=== PATIENT | male | born 1955 | race Caucasian/White ===

== ENCOUNTER 2018-03-30 15:44 | Inpatient (IN) ==
[2018-03-30] MEDS ORDERED: 0.9 % Sodium Chloride 1,000 ML IVC ONE ×2 (16:02→17:03)
[2018-03-30] MEDS ORDERED: Ipratropium Neb 0.5 MG NEBULIZER IH ONE (16:02)
--- NOTE | 2018-03-30 16:03 | Emergency Department Note ---
Disposition Clinical Impression: Hospital acquired PNA Sepsis Qualifiers: Sepsis type: sepsis due to unspecified organism Qualified Code(s): A41.9 - Sepsis, unspecified organism Disposition: Admitted As Inpatient Condition: Fair Referrals: Zander Christina DO [Primary Care Provider] - Forms: ED Satisfaction Letter General Adult HPI - General Chief complaint: ED Shortness of Breath/Dyspnea Stated complaint: CHELSEA, fever Nursing Notes Reviewed: Yes Vital Signs Reviewed: Yes - History of Present Illness HPI Narrative: 8-year-old male presents emergency department with concern for productive cough and shortness of breath as well as fever for last couple days. Patient is a lung cancer patient who had his last radiation done 6 days ago. Last chemotherapy was performed 14 days ago. Patient does not have a port. Patient states he feels like this is when he had pneumonia last. Patient reports that he feels exactly the same. He does have some nausea, but no vomiting. No chest pain, no abdominal pain. - Related Data Home Medications Medication Instructions Recorded Confirmed Albuterol Sulfate [Albuterol 2 puff IH Q4H PRN 01/15/18 03/30/18 Inhaler] Multivit-Minerals/Folic Acid 400 mcg PO DAILY 01/15/18 03/30/18 [Adult One Daily Gummies] Omeprazole [PriLOSEC] 20 mg PO DAILY 03/04/18 03/30/18 Previous Rx's Medication Instructions Recorded Ondansetron [Zofran] 8 mg PO Q8HR PRN #60 tablet 02/07/18 Prochlorperazine Maleate 10 mg PO Q6HR PRN #90 tablet 02/07/18 [Compazine] GuaiFENesin/Codeine [ROBITUSSIN 10 ml PO Q6HR PRN 20 Days #800 ml 02/20/18 w/CODEINE] Albuterol Neb [AccuNeb] 0.63 mg IH PRN PRN #30 inhsol 02/25/18 Magic Mouthwash [Magic Mouthwash 10 ml PO QID PRN #400 ml 02/27/18 BLM] Sucralfate [Carafate] 1 gm PO QIDAC #120 tablet 03/04/18 Allergies Allergy/AdvReac Type Severity Reaction Status Date / Time No Known Allergies Allergy Verified 03/19/18 08:30 All systems ED: reviewed and negative except as stated. Review of Systems: As Per HPI Constitutional: Reports: fever Cardiovascular: Denies: chest pain Respiratory: Reports: cough, sputum production Gastrointestinal: Reports: nausea. Denies: abdominal pain, vomiting Genitourinary: Denies: urgency, dysuria Musculoskeletal: Denies: back pain, neck pain Integumentary: Denies: rash Neurological: Denies: headache, weakness Past Medical History - Past Medical History Medical history: Reports: hepatitis, other Surgical history: Reports: herniorrhaphy, orthopedic, other, other Psychiatric history: Reports: anxiety - Social History Smoking Status: Former smoker Smokeless Tobacco Status: No Alcohol use: Reports: heavy Drug use: Reports: marijuana Physical Exam - General General appearance: alert - Head Head exam: normocephalic, normal inspection - Eye Eye exam: Present: PERRL, EOMI. Absent: scleral icterus - ENT ENT exam: normal oropharynx - Neck Neck exam: Present: trachea midline - Chest Chest inspection: Present: symmetric chest wall rise - Respiratory Respiratory exam: Present: normal lung sounds bilaterally. Absent: respiratory distress, accessory muscle use - Cardiovascular Cardiovascular exam: Present: normal rhythm, tachycardia - Abdominal Exam Abdominal exam: Present: soft, Non-Tender. Absent: distention, guarding, rebound, rigidity - Extremities Exam Extremities exam: Present: full ROM, normal capillary refill - Back Exam Back exam: Present: full ROM - Neurological Exam Neurological exam: Present: alert, oriented X3 - Psychiatric Psychiatric exam: Present: normal affect, normal mood - Skin Skin exam: Present: warm, dry, intact, normal color. Absent: rash Course Vital Signs Temperature 102.4 F H 03/30/18 15:46 Pulse Rate 122 03/30/18 15:46 Respiratory Rate 22 03/30/18 15:46 Blood Pressure 111/75 03/30/18 15:46 O2 Sat by Pulse Oximetry 95 03/30/18 15:46 Temperature 102.4 F H 03/30/18 15:50 Pulse Rate 106 03/30/18 16:24 Respiratory Rate 18 03/30/18 16:29 Blood Pressure 110/75 03/30/18 16:24 O2 Sat by Pulse Oximetry 96 03/30/18 16:29 Oxygen Delivery Oxygen Delivery Room Air Medical Decision Making - [facility] Narrative Medical decision making narrative: 62-year-old male presents to the emergency department with concern for fever, productive sputum, cough. He is a cancer patient and believes that he has pneumonia again. Patient was previously prescribed antibiotics for a pneumonia before. He has been receiving chemotherapy and radiation therapy. Patient was given 2 L of fluid here in the emergency department. This is a reveals new pneumonia in the left upper lobe. Patient was started on vancomycin, cefepime, Levaquin. Patient was given Tylenol as he was febrile. Patient was given DuoNeb here in the emergency department. I do casted was not elevated. Heart rate did reduce from 122-106. We also gave patient Toradol as well for fever. Spoke with the hospitalist Dr. George for admission. He he agreed to accept the patient. Patient hemodynamically stable at the time of admission to the hospital. Chest X-Ray 03/30/18 15:54 IMPRESSION: New pneumonia axillary subsegment left upper lobe. Chest radiograph surveillance in 4-6 weeks is recommended to ensure clearing. D/ / Matias Carlos / Matias Carlos Interpreting Provider: Matias Carlos Vital Signs Temperature 102.4 F H 03/30/18 15:46 Pulse Rate 122 03/30/18 15:46 Respiratory Rate 22 03/30/18 15:46 Blood Pressure 111/75 03/30/18 15:46 O2 Sat by Pulse Oximetry 95 03/30/18 15:46 Temperature 102.4 F H 03/30/18 15:50 Pulse Rate 106 03/30/18 18:00 Respiratory Rate 16 03/30/18 18:00 Blood Pressure 101/66 03/30/18 18:00 O2 Sat by Pulse Oximetry 97 03/30/18 18:00 Oxygen Delivery Oxygen Delivery Room Air - Lab Data Result diagrams: 03/30/18 16:00 03/30/18 16:00 Lab Results 03/30/18 03/30/18 03/30/18 Range/Units 16:00 16:00 16:00 WBC 4.1 L (4.3-11.1) K/mcL RBC 3.69 L (4.19-5.50) M/mcL Hgb 10.8 L (12.9-16.9) g/dL Hct 32.3 L (37.5-50.1) % MCV 87.5 (83.0-100.0) fL MCH 29.3 (28.0-33.3) pg MCHC 33.4 (31.6-35.5) g/dL RDW 16.5 H (11.5-14.5) % Plt Count 146 (140-400) K/mcL MPV 9.2 L (9.4-12.4) fL Immature Gran % 1.0 (0-4) % Seg Neutrophils % 76.2 % Lymphocytes % 7.3 % Monocytes % 15.1 % Eosinophils % 0.2 % Basophils % 0.2 % Neutrophils # 3.1 (1.6-8.9) K/mcL Lymphocytes # 0.3 L (0.6-4.6) K/mcL Monocytes # 0.6 (0.0-1.3) K/mcL Eosinophils # 0.0 (0.0-0.6) K/mcL Basophils # 0.0 (0.0-0.2) K/mcL Sodium 134 L (136-145) mEq/L Potassium 4.2 (3.5-5.1) mEq/L Chloride 100 (98-107) mEq/L Carbon Dioxide 24 (23-29) mEq/L BUN 18 (8-23) mg/dL Creatinine 0.87 (0.70-1.30) mg/dL Est GFR ( Amer) > 60 (> 60) Est GFR (Non-Af Amer) > 60 (> 60) BUN/Creatinine Ratio 21 (6-26) Glucose 121 H (70-105) mg/dL Calculated Osmolality 281 (280-300) Lactic Acid 1.2 (0.5-2.2) mmol/L Calcium 9.1 (8.6-10.3) mg/dL Troponin I < 0.03 (< 0.04) ng/mL B-Natriuretic Peptide (Less than 100) pg/mL Urine Color (Yellow) Urine Clarity (Clear) Urine pH (5.0-8.0) pH Units Ur Specific [place] (1.010-1.025) Urine Protein (Neg-Trace) mg/dL Urine Glucose (UA) (Normal) mg/dL Urine Ketones (Negative) mg/dL Urine Blood (Negative) Urine Nitrite (Negative) Urine Bilirubin (Negative) Urine Urobilinogen (Normal) mg/dL Ur Leukocyte Esterase (Negative) Urine Microscopic RBC (0-3) per hpf Urine Microscopic WBC (0-3) per hpf Ur Squamous Epith Cells (None-Few) per lpf Urine Bacteria (None-Few) per hpf Hyaline Casts (None-Few) per lpf Ur Culture Indicated? (NO) 03/30/18 03/30/18 Range/Units 16:00 16:24 WBC (4.3-11.1) K/mcL RBC (4.19-5.50) M/mcL Hgb (12.9-16.9) g/dL Hct (37.5-50.1) % MCV (83.0-100.0) fL MCH (28.0-33.3) pg MCHC (31.6-35.5) g/dL RDW (11.5-14.5) % Plt Count (140-400) K/mcL MPV (9.4-12.4) fL Immature Gran % (0-4) % Seg Neutrophils % % Lymphocytes % % Monocytes % % Eosinophils % % Basophils % % Neutrophils # (1.6-8.9) K/mcL Lymphocytes # (0.6-4.6) K/mcL Monocytes # (0.0-1.3) K/mcL Eosinophils # (0.0-0.6) K/mcL Basophils # (0.0-0.2) K/mcL Sodium (136-145) mEq/L Potassium (3.5-5.1) mEq/L Chloride (98-107) mEq/L Carbon Dioxide (23-29) mEq/L BUN (8-23) mg/dL Creatinine (0.70-1.30) mg/dL Est GFR ( Amer) (> 60) Est GFR (Non-Af Amer) (> 60) BUN/Creatinine Ratio (6-26) Glucose (70-105) mg/dL Calculated Osmolality (280-300) Lactic Acid (0.5-2.2) mmol/L Calcium (8.6-10.3) mg/dL Troponin I (< 0.04) ng/mL B-Natriuretic Peptide 54 (Less than 100) pg/mL Urine Color Dark Yellow (Yellow) Urine Clarity Cloudy A (Clear) Urine pH 7.5 (5.0-8.0) pH Units Ur Specific [place] 1.026 H (1.010-1.025) Urine Protein 30 H (Neg-Trace) mg/dL Urine Glucose (UA) Normal (Normal) mg/dL Urine Ketones 15 H (Negative) mg/dL Urine Blood Negative (Negative) Urine Nitrite Negative (Negative) Urine Bilirubin Negative (Negative) Urine Urobilinogen Normal (Normal) mg/dL Ur Leukocyte Esterase Negative (Negative) Urine Microscopic RBC 5-15 H (0-3) per hpf Urine Microscopic WBC 0-3 (0-3) per hpf Ur Squamous Epith Cells Moderate H (None-Few) per lpf Urine Bacteria None Seen (None-Few) per hpf Hyaline Casts None Seen (None-Few) per lpf Ur Culture Indicated? NO (NO) - EKG Data EKG #1 EKG attestation: Yes I reviewed and interpreted this EKG. EKG results narrative: 15:51 Ventricular rate 120 bpm, CO interval 143 ms, QS duration 138 ms, QT 324 ms, QTC 396 ms, left axis deviation. Sinus tachycardia with a ventricular rate of [address] changes noted on this electrocardiogram. This study was compared to one performed on .
[2018-03-30] MEDS ORDERED: Levalbuterol Neb 1.25 MG/3 ML IH ONE (16:15)
[2018-03-30 16:19] LABS: Basophils % 0.2 %; Eosinophils % 0.2 %; Hematocrit 32.3 % (37.5-50.1); Hemoglobin 10.8 g/dL (12.9-16.9); Lymphocytes # 0.3 K/mcL (0.6-4.6); Lymphocytes % 7.3 %; Mean Corpuscular HGB Conc 33.4 g/dL (31.6-35.5); Mean Corpuscular Hemoglobin 29.3 pg (28.0-33.3); Mean Corpuscular Volume 87.5 fL (83.0-100.0); Mean Platelet Volume 9.2 fL (9.4-12.4); Monocytes # 0.6 K/mcL (0.0-1.3); Monocytes % 15.1 %; Neutrophils # 3.1 K/mcL (1.6-8.9); Platelet Count 146 K/mcL (140-400); Red Blood Count 3.69 M/mcL (4.19-5.50); Red Cell Distribution Width 16.5 % (11.5-14.5); Segmented Neutrophils % 76.2 %
--- NOTE | 2018-03-30 16:19 | Emergency Department Note ---
Disposition Clinical Impression: Hospital acquired PNA Sepsis Qualifiers: Sepsis type: sepsis due to unspecified organism Qualified Code(s): A41.9 - Sepsis, unspecified organism Disposition: Admitted As Inpatient Condition: Fair Referrals: Zander Christina DO [Primary Care Provider] - Forms: ED Satisfaction Letter General Adult HPI - General Chief complaint: ED Shortness of Breath/Dyspnea Stated complaint: CHELSEA, fever Time Seen by Provider: 03/30/18 15:57 Source: patient - History of Present Illness Pain Scale: 0 - Related Data Home Medications Medication Instructions Recorded Confirmed Albuterol Sulfate [Albuterol 2 puff IH Q4H PRN 01/15/18 03/30/18 Inhaler] Multivit-Minerals/Folic Acid 400 mcg PO DAILY 01/15/18 03/30/18 [Adult One Daily Gummies] Omeprazole [PriLOSEC] 20 mg PO DAILY 03/04/18 03/30/18 Previous Rx's Medication Instructions Recorded Ondansetron [Zofran] 8 mg PO Q8HR PRN #60 tablet 02/07/18 Prochlorperazine Maleate 10 mg PO Q6HR PRN #90 tablet 02/07/18 [Compazine] GuaiFENesin/Codeine [ROBITUSSIN 10 ml PO Q6HR PRN 20 Days #800 ml 02/20/18 w/CODEINE] Albuterol Neb [AccuNeb] 0.63 mg IH PRN PRN #30 inhsol 02/25/18 Magic Mouthwash [Magic Mouthwash 10 ml PO QID PRN #400 ml 02/27/18 BLM] Sucralfate [Carafate] 1 gm PO QIDAC #120 tablet 03/04/18 Allergies Allergy/AdvReac Type Severity Reaction Status Date / Time No Known Allergies Allergy Verified 03/19/18 08:30 Constitutional: Reports: fever Cardiovascular: Denies: chest pain Respiratory: Reports: cough, sputum production Gastrointestinal: Reports: nausea. Denies: abdominal pain, vomiting Genitourinary: Denies: urgency, dysuria Musculoskeletal: Denies: back pain, neck pain Integumentary: Denies: rash Neurological: Denies: headache, weakness Past Medical History - Past Medical History Medical history: Reports: hepatitis, other Surgical history: Reports: herniorrhaphy, orthopedic, other, other Psychiatric history: Reports: anxiety - Social History Smoking Status: Former smoker Smokeless Tobacco Status: No Alcohol use: Reports: heavy Drug use: Reports: marijuana Physical Exam - General General appearance: alert Course Vital Signs Temperature 102.4 F H 03/30/18 15:46 Pulse Rate 122 03/30/18 15:46 Respiratory Rate 22 03/30/18 15:46 Blood Pressure 111/75 03/30/18 15:46 O2 Sat by Pulse Oximetry 95 03/30/18 15:46 Temperature 102.4 F H 03/30/18 15:50 Pulse Rate 106 03/30/18 16:24 Respiratory Rate 18 03/30/18 16:29 Blood Pressure 110/75 03/30/18 16:24 O2 Sat by Pulse Oximetry 96 03/30/18 16:29 Oxygen Delivery Oxygen Delivery Room Air Medical Decision Making - Lab Data Result diagrams: 03/30/18 16:00 03/30/18 16:00 Lab Results 03/30/18 03/30/18 03/30/18 Range/Units 16:00 16:00 16:00 WBC 4.1 L (4.3-11.1) K/mcL RBC 3.69 L (4.19-5.50) M/mcL Hgb 10.8 L (12.9-16.9) g/dL Hct 32.3 L (37.5-50.1) % MCV 87.5 (83.0-100.0) fL MCH 29.3 (28.0-33.3) pg MCHC 33.4 (31.6-35.5) g/dL RDW 16.5 H (11.5-14.5) % Plt Count 146 (140-400) K/mcL MPV 9.2 L (9.4-12.4) fL Immature Gran % 1.0 (0-4) % Seg Neutrophils % 76.2 % Lymphocytes % 7.3 % Monocytes % 15.1 % Eosinophils % 0.2 % Basophils % 0.2 % Neutrophils # 3.1 (1.6-8.9) K/mcL Lymphocytes # 0.3 L (0.6-4.6) K/mcL Monocytes # 0.6 (0.0-1.3) K/mcL Eosinophils # 0.0 (0.0-0.6) K/mcL Basophils # 0.0 (0.0-0.2) K/mcL Sodium 134 L (136-145) mEq/L Potassium 4.2 (3.5-5.1) mEq/L Chloride 100 (98-107) mEq/L Carbon Dioxide 24 (23-29) mEq/L BUN 18 (8-23) mg/dL Creatinine 0.87 (0.70-1.30) mg/dL Est GFR ( Amer) > 60 (> 60) Est GFR (Non-Af Amer) > 60 (> 60) BUN/Creatinine Ratio 21 (6-26) Glucose 121 H (70-105) mg/dL Calculated Osmolality 281 (280-300) Lactic Acid 1.2 (0.5-2.2) mmol/L Calcium 9.1 (8.6-10.3) mg/dL Troponin I < 0.03 (< 0.04) ng/mL B-Natriuretic Peptide (Less than 100) pg/mL Urine Color (Yellow) Urine Clarity (Clear) Urine pH (5.0-8.0) pH Units Ur Specific [place] (1.010-1.025) Urine Protein (Neg-Trace) mg/dL Urine Glucose (UA) (Normal) mg/dL Urine Ketones (Negative) mg/dL Urine Blood (Negative) Urine Nitrite (Negative) Urine Bilirubin (Negative) Urine Urobilinogen (Normal) mg/dL Ur Leukocyte Esterase (Negative) Urine Microscopic RBC (0-3) per hpf Urine Microscopic WBC (0-3) per hpf Ur Squamous Epith Cells (None-Few) per lpf Urine Bacteria (None-Few) per hpf Hyaline Casts (None-Few) per lpf Ur Culture Indicated? (NO) 03/30/18 03/30/18 Range/Units 16:00 16:24 WBC (4.3-11.1) K/mcL RBC (4.19-5.50) M/mcL Hgb (12.9-16.9) g/dL Hct (37.5-50.1) % MCV (83.0-100.0) fL MCH (28.0-33.3) pg MCHC (31.6-35.5) g/dL RDW (11.5-14.5) % Plt Count (140-400) K/mcL MPV (9.4-12.4) fL Immature Gran % (0-4) % Seg Neutrophils % % Lymphocytes % % Monocytes % % Eosinophils % % Basophils % % Neutrophils # (1.6-8.9) K/mcL Lymphocytes # (0.6-4.6) K/mcL Monocytes # (0.0-1.3) K/mcL Eosinophils # (0.0-0.6) K/mcL Basophils # (0.0-0.2) K/mcL Sodium (136-145) mEq/L Potassium (3.5-5.1) mEq/L Chloride (98-107) mEq/L Carbon Dioxide (23-29) mEq/L BUN (8-23) mg/dL Creatinine (0.70-1.30) mg/dL Est GFR ( Amer) (> 60) Est GFR (Non-Af Amer) (> 60) BUN/Creatinine Ratio (6-26) Glucose (70-105) mg/dL Calculated Osmolality (280-300) Lactic Acid (0.5-2.2) mmol/L Calcium (8.6-10.3) mg/dL Troponin I (< 0.04) ng/mL B-Natriuretic Peptide 54 (Less than 100) pg/mL Urine Color Dark Yellow (Yellow) Urine Clarity Cloudy A (Clear) Urine pH 7.5 (5.0-8.0) pH Units Ur Specific [place] 1.026 H (1.010-1.025) Urine Protein 30 H (Neg-Trace) mg/dL Urine Glucose (UA) Normal (Normal) mg/dL Urine Ketones 15 H (Negative) mg/dL Urine Blood Negative (Negative) Urine Nitrite Negative (Negative) Urine Bilirubin Negative (Negative) Urine Urobilinogen Normal (Normal) mg/dL Ur Leukocyte Esterase Negative (Negative) Urine Microscopic RBC 5-15 H (0-3) per hpf Urine Microscopic WBC 0-3 (0-3) per hpf Ur Squamous Epith Cells Moderate H (None-Few) per lpf Urine Bacteria None Seen (None-Few) per hpf Hyaline Casts None Seen (None-Few) per lpf Ur Culture Indicated? NO (NO) Critical Care Time Critical Care Time: Yes Total Critical Care Time: 40 Attestation: Critical care performed: Time is exclusive of separately billable procedures. Time includes: direct patient care, patient reassessment, coordination of patient care, interpretation of data (laboratory data, radiology data, and respiratory data), review of patient's medical records, medical consultation and documentation of patient care. Procedures included in critical care time: Procedures excluded from critical care time: Attestation Statement - Attestation Attestation: I examined this patient and my medical decision-making was reviewed with the Resident Physician. I agree with the documented findings, disposition and treatment plan as described except to the extent set forth below. Patient presents to the ED with a chief complaint of fever. Started last night. He has a productive cough associated with it. Patient just finished his last chemotherapy 12 days ago. Patient currently being treated for lung cancer. On examination he is in no acute distress. Exclusive coarse breath sounds on the right. Plan. Septic workup. Patient is febrile and tachycardic. Patient with upper lobe pneumonia. Meets sepsis criteria without shock. Patient placed on broad-spectrum antibiotics. Hemolytically stable. Heart rate is improved to the low 100s at this time after IV fluids. Chest X-Ray 03/30/18 15:54 IMPRESSION: New pneumonia axillary subsegment left upper lobe. Chest radiograph surveillance in 4-6 weeks is recommended to ensure clearing. D/ / Matias Carlos / Matias Carlos Interpreting Provider: Matias Carlos
[2018-03-30] MEDS ORDERED: Ipratropium/Albuterol Neb 3 ML IH ONE (16:23)
[2018-03-30 16:38] LABS: Bilirubin,Urine Negative (Negative); Blood,Urine Negative (Negative); Clarity,Urine Cloudy (Clear); Color,Urine Dark Yellow (Yellow); Glucose,Urine (UA) Normal (Normal); Ketones,Urine 15 mg/dL (Negative); Leukocyte Esterase,Urine Negative (Negative); Nitrite,Urine Negative (Negative); PH,Urine 7.5 pH Units (5.0-8.0); Protein,Urine 30 mg/dL (Neg-Trace); Specific Gravity,Urine 1.026 (1.010-1.025); Urobilinogen,Urine Normal (Normal)
[2018-03-30 16:41] LABS: Bacteria,Urine None Seen per hpf (None-Few); Hyaline Casts,Urine None Seen per lpf (None-Few); Squamous Epithelial Cell,Urine Moderate per lpf (None-Few); WBC,Urine 0-3 per hpf (0-3)
[2018-03-30 16:44] LABS: BUN/Creatinine Ratio 21 (6-26); Blood Urea Nitrogen 18 mg/dL (8-23); Calcium 9.1 mg/dL (8.6-10.3); Carbon Dioxide 24 mEq/L (23-29); Chloride 100 mEq/L (98-107); Glucose 121 mg/dL (70-105); Osmolality,Calculated 281 (280-300); Potassium 4.2 mEq/L (3.5-5.1); Sodium 134 mEq/L (136-145); eGFR For African Americans > 60 (> 60); eGFR For Non-African Americans > 60 (> 60)
[2018-03-30 16:45] LABS: Troponin I < 0.03 ng/mL (< 0.04)
[2018-03-30] MEDS ORDERED: Vancomycin 1,000 MG in 0.9 % Sodium Chloride 10 ML IVPB ONE (16:45)
[2018-03-30] MEDS ORDERED: Cefepime HCl 2,000 MG in 0.9 % Sodium Chloride Mini Bag 100 ML IVPB STA (16:45)
[2018-03-30] MEDS ORDERED: Piperacillin/Tazobactam 3.375 GM in 0.9 % Sodium Chloride Mini Bag 100 ML IVPB ONE (16:45)
[2018-03-30] MEDS ORDERED: Ketorolac 30 MG/ML VIAL IVP ONE (18:11)
--- NOTE | 2018-03-30 18:11 | Internal Med History&Physical ---
Date of Encounter: 03/30/18 Time of Encounter: 18:09 Internal Medicine - H&P: HPI History of present illness: Mr. Wilburn is a 62 year old male with history of smoking but quit since the recent diagnosis of R. lung cancer (stage3) s/p position of chemoradiation approximately a week ago who presents with fevers and coughing secondary to pneumonia. He reports completing chemotherapy approximately 2 weeks ago and radiation proximal a week ago under the care of Dr. Sigala and Dr. Ohara. He developed fever with temperature 102-103 Fahrenheit since yesterday evening. Associated with cough productive of clear mucus. Denies any overt chills. Otherwise he has minimal comorbidities. He has quit smoking since diagnosis of lung cancer recently. EKG personally reviewed with rate of 120 sinus tachycardia, or bundle branch block FINDINGS: Dense opacity is demonstrated axillary subsegment left upper lobe. The right lung is clear. Cardiomediastinal silhouette and hilar silhouettes appear unremarkable. No pleural effusion or pneumothorax is seen. Visualized osseous structures appear unremarkable. XR/XR chest 1V portable IMPRESSION: New pneumonia axillary subsegment left upper lobe. Chest radiograph surveillance in 4-6 weeks is recommended to ensure clearing. Past Med Surg Social Fam HX - Past Medical History Medical history: hepatitis, other Additional medical history: lung CA, past smoker, past drinker Psychiatric history: anxiety - Past Surgical History Surgical History: herniorrhaphy, orthopedic, other, other Additional surgical history: back surgery - Social History Smoking Status: Former smoker Smokeless Tobacco Status: No Alcohol use: heavy Drug use: marijuana Internal Medicine - H&P: Meds Albuterol Sulfate [Albuterol Inhaler] 2 puff IH Q4H PRN 01/15/18 [History] Multivit-Minerals/Folic Acid [Adult One Daily Gummies] 400 mcg PO DAILY [History] Ondansetron [Zofran] 8 mg PO Q8HR PRN #60 tablet 02/07/18 [Rx] Prochlorperazine Maleate [Compazine] 10 mg PO Q6HR PRN #90 tablet 02/07/18 [Rx] GuaiFENesin/Codeine [ROBITUSSIN w/CODEINE] 10 ml PO Q6HR PRN 20 Days #800 ml 07/02 [Rx] Albuterol Neb [AccuNeb] 0.63 mg IH PRN PRN #30 inhsol 02/25/18 [Rx] Magic Mouthwash [Magic Mouthwash BLM] 10 ml PO QID PRN #400 ml 02/27/18 [Rx] Omeprazole [PriLOSEC] 20 mg PO DAILY 03/04/18 [History] Sucralfate [Carafate] 1 gm PO QIDAC #120 tablet 03/04/18 [Rx] 3 Allergy/AdvReac Type Severity Reaction Status Date / Time No Known Allergies Allergy Verified 03/19/18 08:30 All Systems PM: A 10-system review of systems was performed and is negative for pertinent findings except as documented above in the HPI. Review of systems: ROS 14 point review of systems reviewed as best as possible given presentation. Pertinent positive or negative as per HPI or otherwise reviewed as negative - Constitutional Vitals: Temp Pulse Resp BP Pulse Ox 102.4 F H 106 16 101/66 97 03/30/18 15:50 03/30/18 18:00 03/30/18 18:00 03/30/18 18:00 03/30/18 18:00 Exam: General - AAO x 3 Psych - Appropriate affect/speech. No agitation Eyes - DARRIUS. Eye lids intact. No scleral icterus Neuro - No gross peripheral or central neuro deficits on inspection Heart - Sinus. RRR. S1 and S2 present. No added HS/murmurs appreciated. No elevated JVD appreciated. Lung - Adequate air entry b/l, No crackles/wheezes appreciated GI - Soft, non-tender. No hepatosplenomegaly/ascites. BS+ - No CVA/suprapubic tenderness or palpable bladder distension Skin - Intact. No rash/petechiae/ecchymosis. Warm extremities Internal Med - H&P Results - Labs CBC & Chem 7: 03/30/18 16:00 03/30/18 16:00 Labs: Short CBC 03/30/18 Range/Units 16:00 WBC 4.1 L (4.3-11.1) K/mcL Hgb 10.8 L (12.9-16.9) g/dL Hct 32.3 L (37.5-50.1) % Plt Count 146 (140-400) K/mcL Neutrophils # 3.1 (1.6-8.9) K/mcL BMP 03/30/18 16:00 Sodium 134 L Potassium 4.2 Chloride 100 Carbon Dioxide 24 BUN 18 Creatinine 0.87 Glucose 121 H Calcium 9.1 Cardiac Enzymes 03/30/18 Range/Units 16:00 Troponin I < 0.03 (< 0.04) ng/mL Urine 03/30/18 Range/Units 16:24 Urine Color Dark Yellow (Yellow) Urine Clarity Cloudy A (Clear) Urine pH 7.5 (5.0-8.0) pH Units Ur Specific [place] 1.026 H (1.010-1.025) Urine Protein 30 H (Neg-Trace) mg/dL Urine Glucose (UA) Normal (Normal) mg/dL - Impressions ITS Impressions Chest X-Ray 03/30/18 15:54 IMPRESSION: New pneumonia axillary subsegment left upper lobe. Chest radiograph surveillance in 4-6 weeks is recommended to ensure clearing. D/ / Matias Carlos / Matias Carlos Interpreting Provider: Matias Carlos - Assessment and plan (1) PNA (pneumonia) Current Visit: Yes Status: Acute Assessment and plan: will treat as CAP PNA - PARI Empiric unasyn/azithro for now send serologies due to fever, send blood cx No overt evidence of clinical sepsis at current Qualifiers: Laterality: left Lung location: upper lobe of lung Qualified Code(s): J18.1 - Lobar pneumonia, unspecified organism (2) Lung cancer Current Visit: No Status: Acute Assessment and plan: s/p definitive chemoRT Outpatient follow up Qualifiers: Laterality: right Qualified Code(s): C34.01 - Malignant neoplasm of right main bronchus - Time Spent With Patient Total time spent is greater than 50% in coordination of care (as documented) at patient's floor/unit and/or counseling patient:
[2018-03-30] MEDS ORDERED: Naloxone 0.4 MG/ML INJ IVP PRN (18:14)
[2018-03-30] MEDS ORDERED: Ipratropium/Albuterol Neb 3 ML IH PRN (18:16)
[2018-03-30] MEDS ORDERED: Azithromycin 500 MG in D5% in Water 250 ML IVPB SCH (19:00)
[2018-03-30] MEDS: Ringers Solution, Lactated 1,000 ML IVC SCH (19:34)
[2018-03-30] MEDS: Ipratropium/Albuterol Neb 3 ML IH SCH (22:09)
[2018-03-30] MEDS: Ampicillin/Sulbactam 1,500 MG in 0.9 % Sodium Chloride Mini Bag 100 ML IVPB SCH (23:21)
[2018-03-30] MEDS: Acetaminophen 325 MG TABLET PO PRN (23:21)
[2018-03-31 04:51] LABS: Hemoglobin 9.5 g/dL (12.9-16.9); Mean Corpuscular HGB Conc 33.9 g/dL (31.6-35.5); Mean Corpuscular Hemoglobin 30.3 pg (28.0-33.3); Mean Corpuscular Volume 89.2 fL (83.0-100.0); Platelet Count 121 K/mcL (140-400); Red Blood Count 3.14 M/mcL (4.19-5.50); Red Cell Distribution Width 16.6 % (11.5-14.5)
[2018-03-31] MEDS: Ipratropium/Albuterol Neb 3 ML IH SCH ×4 (04:52→23:07)
[2018-03-31 05:11] LABS: BUN/Creatinine Ratio 16 (6-26); Blood Urea Nitrogen 13 mg/dL (8-23); Calcium 8.4 mg/dL (8.6-10.3); Carbon Dioxide 23 mEq/L (23-29); Chloride 104 mEq/L (98-107); Glucose 113 mg/dL (70-105); Osmolality,Calculated 275 (280-300); Potassium 4.2 mEq/L (3.5-5.1); Sodium 132 mEq/L (136-145); eGFR For African Americans > 60 (> 60); eGFR For Non-African Americans > 60 (> 60)
[2018-03-31 05:24] LABS: Lymphocytes # 0.3 K/mcL (0.6-4.6); Monocytes # 0.3 K/mcL (0.0-1.3); Neutrophils # 2.7 K/mcL (1.6-8.9); Platelet Estimate Slight Decrease (Normal); Toxic Granulation Present (Not Present)
[2018-03-31] MEDS: Ampicillin/Sulbactam 1,500 MG in 0.9 % Sodium Chloride Mini Bag 100 ML IVPB SCH ×2 (06:16→11:21)
[2018-03-31] MEDS: *HR* Enoxaparin 40 MG/0.4 ML SYRINGE SQ SCH (06:17)
[2018-03-31] MEDS: Ringers Solution, Lactated 1,000 ML IVC SCH (08:14)
[2018-03-31] MEDS: Acetaminophen 325 MG TABLET PO PRN ×2 (11:21→20:01)
[2018-03-31] MEDS ORDERED: 0.9 % Sodium Chloride 500 ML IVC ONE (11:22)
[2018-03-31] MEDS ORDERED: Isovue-370 500 ML INFUS..BTL IV ONE (11:24)
[2018-03-31] MEDS: 0.9 % Sodium Chloride 1,000 ML IVC SCH (11:36)
--- NOTE | 2018-03-31 12:20 | Internal Med Progress Note ---
Date of Encounter: 03/31/18 Time of Encounter: 12:22 - Assessment and plan (1) PNA (pneumonia) Current Visit: Yes Status: Acute Assessment and plan: CXR with new PARI pneumonia. Meets sepsis criteria with temperature of 103, tachycardia and pneumonia. WBC 3.4, lactic acid normal. No hypotension. Hemodynamically stable. Broaden ATB to Zosyn and vancomycin with persistent fevers. Urinary antigens negative. Respiratory PCR and Blood culture pending. Qualifiers: Laterality: left Lung location: upper lobe of lung Qualified Code(s): J18.1 - Lobar pneumonia, unspecified organism (2) Sepsis Current Visit: Yes Status: Acute Assessment and plan: Secondary to pneumonia. Please see above and reference sepsis event note. Qualifiers: Sepsis type: sepsis due to unspecified organism Qualified Code(s): A41.9 - Sepsis, unspecified organism (3) Lung cancer Current Visit: No Status: Acute Assessment and plan: s/p recent chemo and radiation. Oncology consulted Qualifiers: Laterality: right Qualified Code(s): C34.01 - Malignant neoplasm of right main bronchus (4) DVT prophylaxis Current Visit: Yes Status: Acute Assessment and plan: lovenox - Time Spent With Patient Total time spent is greater than 50% in coordination of care (as documented) at patient's floor/unit and/or counseling patient: - Subjective Interval history: Seen and examined at bedside. Patient is new to me, information obtained from chart review and patient report. Laying in bed, no acute distress apparent. Says he does not feel well. He has a fever and a sore and achy. Has a productive cough at times. - Constitutional Vitals: Temp Pulse Resp BP Pulse Ox 103 F H 107 16 100/60 92 03/31/18 11:15 03/31/18 11:15 03/31/18 11:15 03/31/18 11:15 03/31/18 11:15 General appearance: Present: A&O X 3, no acute distress - Head Head exam: Present: atraumatic, normocephalic - Eye Eye exam: Present: PERRL, conjuntiva pink, sclera anicteric Pupils: Present: PERRL - Neck Neck exam general surgery: Present: supple, trachea midline. Absent: lymphadenopathy - Respiratory Respiratory exam: Present: CTAB. Absent: accessory muscle use, rales, rhonchi, wheezes - Cardiovascular Cardiovascular exam: Present: RRR, +S1, +S2. Absent: diastolic murmur, gallop, rubs, systolic murmur - GI/Abdominal GI/Abdominal exam: Present: normal bowel sounds, soft, no peritoneal signs. Absent: distended, tenderness - Extremities Exam Extremities exam: Present: warm, radial pulses palpable and symmetrical. Absent : calf tenderness, cyanotic, pedal edema - Neurological Exam Neurological exam: Present: CN II-XII intact, oriented X3, no focal deficits. Absent: pronater drift, facial droop, speech deficit - Skin Skin exam: Present: dry, intact Internal Medicine: Result - Labs CBC & Chem 7: 03/31/18 04:39 03/31/18 04:39 Labs: Short CBC 03/31/18 Range/Units 04:39 WBC 3.4 L (4.3-11.1) K/mcL Hgb 9.5 L (12.9-16.9) g/dL Hct 28.0 L (37.5-50.1) % Plt Count 121 L (140-400) K/mcL Neutrophils # 2.7 (1.6-8.9) K/mcL BMP 03/31/18 04:39 Sodium 132 L Potassium 4.2 Chloride 104 Carbon Dioxide 23 BUN 13 Creatinine 0.80 Glucose 113 H Calcium 8.4 L Consult Discharge Plan - Plan Referrals: Zander Christina DO [Primary Care Provider] - Sepsis Event Note - Evaluation Sepsis Screen: Sepsis Risk Current Stage of Sepsis: sepsis Possible Source of Sepsis: pulmonary - Focused Exam Date of Encounter: 03/31/18 Time of Encounter: 12:30 Vital Signs: Vital Signs Temp Pulse Resp BP Pulse Ox 03/31/18 11:15 103 F H 107 16 100/60 92 03/31/18 09:59 18 93 03/31/18 07:19 100.0 F H 109 18 93/52 93 03/31/18 04:52 20 96 03/31/18 03:08 100.9 F H 101 16 93/59 92 03/31/18 01:35 99.5 F 95 16 91/57 94 Respiratory Exam: Present: CTA bilaterally Cardiovascular Exam: Present: tachycardia Capillary Refill: < 2 seconds Peripheral Pulse Strength: 3+ normal Peripheral Pulse Location: Radial Skin Exam: normal turgor - Bedside Monitoring CVP Measures: greater than 12 (not measured) ScvO2 measures: greater than or equal to 70% (not measured) Bedside Ultrasound Performed: No Passive Leg raise/fluid bolus: fluid responsive
[2018-03-31 12:32] LABS: Adenovirus Not Detected (Not Detect); Bordetella Pertussis Not Detected (Not Detect); Chlamydophila pneumoniae Not Detected (Not Detect); Coronavirus 229E Not Detected (Not Detect); Coronavirus HKU1 Not Detected (Not Detect); Coronavirus NL63 Not Detected (Not Detect); Coronavirus OC43 Not Detected (Not Detect); Human Metapneumovirus Not Detected (Not Detect); Human Rhinovirus/Enterovirus Not Detected (Not Detect); Influenza A Subtype 2009 H1 Not Detected (Not Detect); Influenza A Untypeable Not Detected (Not Detect); Influenza B Not Detected (Not Detect); Mycoplasma pneumoniae Not Detected (Not Detect); Parainfluenza Virus 1 Not Detected (Not Detect); Parainfluenza Virus 2 Not Detected (Not Detect); Parainfluenza Virus 3 Not Detected (Not Detect); Parainfluenza Virus 4 Not Detected (Not Detect); Respiratory Syncytial Virus Not Detected (Not Detect)
[2018-03-31] MEDS: Piperacillin/Tazobactam 3.375 GM in 0.9 % Sodium Chloride Mini Bag 100 ML IVPB SCH (15:33)
[2018-03-31] MEDS: Sucralfate 1 GM TABLET PO SCH ×2 (15:33→21:14)
[2018-03-31] MEDS: Magic Mouthwash 10 ML UD Cup PO PRN (21:14)
[2018-04-01] MEDS: Piperacillin/Tazobactam 3.375 GM in 0.9 % Sodium Chloride Mini Bag 100 ML IVPB SCH ×3 (00:26→15:57)
[2018-04-01] MEDS: Ipratropium/Albuterol Neb 3 ML IH SCH ×4 (03:42→22:18)
[2018-04-01] MEDS: 0.9 % Sodium Chloride 1,000 ML IVC SCH ×2 (04:49→21:14)
[2018-04-01 05:03] LABS: Hematocrit 25.5 % (37.5-50.1); Hemoglobin 8.3 g/dL (12.9-16.9); Mean Corpuscular HGB Conc 32.5 g/dL (31.6-35.5); Mean Corpuscular Hemoglobin 29.1 pg (28.0-33.3); Mean Corpuscular Volume 89.5 fL (83.0-100.0); Mean Platelet Volume 9.8 fL (9.4-12.4); Platelet Count 131 K/mcL (140-400); Red Blood Count 2.85 M/mcL (4.19-5.50); Red Cell Distribution Width 17.2 % (11.5-14.5)
[2018-04-01 05:29] LABS: BUN/Creatinine Ratio 16 (6-26); Blood Urea Nitrogen 11 mg/dL (8-23); Calcium 8.2 mg/dL (8.6-10.3); Carbon Dioxide 24 mEq/L (23-29); Chloride 105 mEq/L (98-107); Glucose 122 mg/dL (70-105); Osmolality,Calculated 279 (280-300); Potassium 3.8 mEq/L (3.5-5.1); Sodium 134 mEq/L (136-145); eGFR For African Americans > 60 (> 60); eGFR For Non-African Americans > 60 (> 60)
[2018-04-01] MEDS: *HR* Enoxaparin 40 MG/0.4 ML SYRINGE SQ SCH (06:13)
[2018-04-01] MEDS: Sucralfate 1 GM TABLET PO SCH ×4 (08:14→21:14)
[2018-04-01] MEDS: Acetaminophen 325 MG TABLET PO PRN ×2 (08:14→16:00)
--- NOTE | 2018-04-01 08:48 | Oncology Inp Consult Note ---
Date of Encounter: 04/01/18 Time of Encounter: 08:00 Assessment and Plan (1) Lung cancer Status: Acute Assessment and plan: Patient with right lung mass, rt hilar adenopathy with mediastinal lymphadenopathy, stage III with possibly another primary in the left upper lung which is not biopsied at this time, which is to be followed up subsequently. Patient started concurrent chemoradiation therapy, carbotaxol 03/01 completed 03/19, last dose of carbotaxol Hospitalized with symptoms of pneumonia, sepsis, CT chest showingdisease consistent with pneumonitis/pneumonia. He is on antibiotics coverage with vancomycin and Zosyn. Fever trend high coming down. CX so far negative Anemia, mild thrombocytopenia related to chemotherapy/infection. No need for transfusion currently. Plan of care as above discussed with patient who stated understanding. Qualifiers: Laterality: right Lung location: upper lobe of lung Qualified Code(s): C34.11 - Malignant neoplasm of upper lobe, right bronchus or lung - Data of Consult Requesting Physician: Terrell Joshi Primary Care Provider: Corey Chowdhury - Consult Narrative Reason for consult: lung cancer, pneumonia History of present illness: Mr. 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 HPI 62 yo male with hx ?hepatitis, anxiety depression, ex smoker, who had abnormal CT scan, followed by PET imaging that showed right lung mass, mediastinal lymphadenopathy, tiny area of uptake in the left lung without any distant metastatic disease. Patient was sent for a bronchoscopy biopsy which showed a poorly differentiated squamous cell carcinoma. Patient had thoracentesis right pleural effusion which was negative for malignancy. He started chemoradiation therapy carbotaxol 03/01 with RT as definitive treatment for his stage III lung cancer, completed the radiation March 2018. He developed mucositis symptoms stomach discomfort, was treated also with antibiotics for respiratory infection during chemoradiation therapy. The patient is hospitalized with the right lung finding in CT scan pneumonitis/ pneumonia. He had high fevers at home culture negative for Legionella and strep pneumo. Blood cultures are pending. He is on Zosyn. On today's visit patient denies any chest pain continues to cough without much expectoration. He is generally weak from the treatment and from fever. Past Med Surg Social Fam HX - Past Medical History Medical history: cancer, COPD, hepatitis, other Additional medical history: lung CA, past smoker, past drinker Psychiatric history: anxiety - Past Surgical History Surgical History: orthopedic, other, other Additional surgical history: back surgery - Social History Smoking Status: Former smoker Smokeless Tobacco Status: No Alcohol use: heavy Drug use: marijuana - Family History Father Living Status: Still Living Hx Family Cardiac Disorders: Yes Hx Family Neuromuscular Disorders: Yes Medications and Allergies Albuterol Sulfate [Albuterol Inhaler] 2 puff IH Q4H PRN 01/15/18 [History] Multivit-Minerals/Folic Acid [Adult One Daily Gummies] 400 mcg PO DAILY [History] Ondansetron [Zofran] 8 mg PO Q8HR PRN #60 tablet 02/07/18 [Rx] Prochlorperazine Maleate [Compazine] 10 mg PO Q6HR PRN #90 tablet 02/07/18 [Rx] GuaiFENesin/Codeine [ROBITUSSIN w/CODEINE] 10 ml PO Q6HR PRN 20 Days #800 ml 07/02 [Rx] Albuterol Neb [AccuNeb] 0.63 mg IH PRN PRN #30 inhsol 02/25/18 [Rx] Magic Mouthwash [Magic Mouthwash BLM] 10 ml PO QID PRN #400 ml 02/27/18 [Rx] Omeprazole [PriLOSEC] 20 mg PO DAILY 03/04/18 [History] Sucralfate [Carafate] 1 gm PO QIDAC #120 tablet 03/04/18 [Rx] 3 Allergy/AdvReac Type Severity Reaction Status Date / Time No Known Allergies Allergy Verified 03/19/18 08:30 Review of systems: as in HPI Oncology - Exam - Constitutional Vitals: Temp Pulse Resp BP Pulse Ox 100.8 F H 99 16 115/68 91 04/01/18 07:39 04/01/18 07:39 04/01/18 07:39 04/01/18 07:39 04/01/18 07:39 Exam: Physical Exam: General: Alert and oriented, well appearing. Mental Status: Affect appropriate for circumstances HEENT: Sclerae anicteric. Skin: No rashes or petechiae. Lymph nodes: No cervical, supraclavicular, axillary adenopathy. Lungs: Bilateral air entry, rhonchi Cardiovascular: Regular rate and rhythm. Abdomen: Soft, nontender; no organomegaly or masses palpable. Extremities: No edema. No calf swelling or tenderness. Neurologic: Alert, cranial nerves II-XII intact; no focal weakness Oncology - Results Labs: 3 04/01/18 04/01/18 03/31/18 04:01 04:01 11:35 WBC 4.8 RBC 2.85 L Hgb 8.3 L Hct 25.5 L MCV 89.5 MCH 29.1 MCHC 32.5 RDW 17.2 H Plt Count 131 L MPV 9.8 Seg Neutrophils % Band Neutrophils % Lymphocytes % Monocytes % Myelocytes % Neutrophils # Lymphocytes # Monocytes # Toxic Granulation Platelet Estimate Sodium 134 L Potassium 3.8 Chloride 105 Carbon Dioxide 24 BUN 11 Creatinine 0.70 Est GFR ( Amer) > 60 Est GFR (Non-Af Amer) > 60 BUN/Creatinine Ratio 16 Glucose 122 H Calculated Osmolality 279 L Lactic Acid Calcium 8.2 L Chlamy pneumoniae PCR Not Detected Adenovirus (PCR) Not Detected B. pertussis DNA (PCR) Not Detected B.parapertussis DNA PCR Not Detected Coronavirus OC43 (PCR) Not Detected Coronavirus HKU1 (PCR) Not Detected Coronavirus 229E (PCR) Not Detected Coronavirus NL63 (PCR) Not Detected Human Metapneumovir PCR Not Detected Influenza A (H1) PCR Not Detected Influ A (H1N1/09) PCR Not Detected Influenza A (H3) PCR Not Detected Influenza A Untype (PCR) Not Detected Influenza Type B (PCR) Not Detected M.pneumoniae DNA (PCR) Not Detected Parainfluenza 1 (PCR) Not Detected Parainfluenza 2 (PCR) Not Detected Parainfluenza 3 (PCR) Not Detected Parainfluenza 4 (PCR) Not Detected RSV (PCR) Not Detected Entero/Rhino (PCR) Not Detected 3 03/31/18 03/31/18 03/31/18 04:39 04:39 04:39 WBC 3.4 L RBC 3.14 L Hgb 9.5 L Hct 28.0 L MCV 89.2 MCH 30.3 MCHC 33.9 RDW 16.6 H Plt Count 121 L MPV 9.0 L Seg Neutrophils % 58.0 Band Neutrophils % 22.0 H Lymphocytes % 8.0 Monocytes % 10.0 Myelocytes % 2.0 H Neutrophils # 2.7 Lymphocytes # 0.3 L Monocytes # 0.3 Toxic Granulation Present A Platelet Estimate Slight Decrease L Sodium 132 L Potassium 4.2 Chloride 104 Carbon Dioxide 23 BUN 13 Creatinine 0.80 Est GFR ( Amer) > 60 Est GFR (Non-Af Amer) > 60 BUN/Creatinine Ratio 16 Glucose 113 H Calculated Osmolality 275 L Lactic Acid 0.8 Calcium 8.4 L Chlamy pneumoniae PCR Adenovirus (PCR) B. pertussis DNA (PCR) B.parapertussis DNA PCR Coronavirus OC43 (PCR) Coronavirus HKU1 (PCR) Coronavirus 229E (PCR) Coronavirus NL63 (PCR) Human Metapneumovir PCR Influenza A (H1) PCR Influ A (H1N1/09) PCR Influenza A (H3) PCR Influenza A Untype (PCR) Influenza Type B (PCR) M.pneumoniae DNA (PCR) Parainfluenza 1 (PCR) Parainfluenza 2 (PCR) Parainfluenza 3 (PCR) Parainfluenza 4 (PCR) RSV (PCR) Entero/Rhino (PCR) Consult Discharge Plan - Plan Referrals: Zander Christina DO [Primary Care Provider] -
--- NOTE | 2018-04-01 09:55 | Electrocardiograph Report ---
[address] [address] Test Date: 2018-03-30 Pat Name: Jeffrey Wilburn Department: 103 Room: 3B Gender: M Case Manager Specialist: MSC : [id number] Requested By: Gavino Brock Order Number: [id number] Reading MD: Igor Cruz Measurements Intervals Sargeant Rate: 120 P: 72 LA: 143 QRS: -89 QRSD: 138 T: 44 QT: 324 QTc: 396 Interpretive Statements SINUS TACHYCARDIA MARKED LEFT AXIS DEVIATION RIGHT BUNDLE BRANCH BLOCK Electronically Signed On 04-01-2018 9:53:44 EDT by Igor Cruz
--- NOTE | 2018-04-01 12:19 | Internal Med Progress Note ---
Date of Encounter: 04/01/18 Time of Encounter: 11:55 - Assessment and plan (1) PNA (pneumonia) Current Visit: Yes Status: Acute Assessment and plan: CXR with new PARI pneumonia. Meets sepsis criteria with temperature of 103, tachycardia and pneumonia. WBC 3.4, lactic acid normal. No hypotension. Hemodynamically stable. Respiratory PCR negative. Urinary antigens negative. Blood cultures no growth to date. Cont Zosyn and vancomycin. Consider de- escalating if remains afebrile and clinically improving on 04/02 exam. Qualifiers: Laterality: left Lung location: upper lobe of lung Qualified Code(s): J18.1 - Lobar pneumonia, unspecified organism (2) Sepsis Current Visit: Yes Status: Acute Assessment and plan: Secondary to pneumonia. Still with low-grade fever. Tachycardia improving. Continue IV ATB as noted above. Overall improved/hemodynamically stable Qualifiers: Sepsis type: sepsis due to unspecified organism Qualified Code(s): A41.9 - Sepsis, unspecified organism (3) Lung cancer Current Visit: No Status: Acute Assessment and plan: s/p recent chemo and radiation. Oncology following Qualifiers: Laterality: right Lung location: upper lobe of lung Qualified Code(s): C34.11 - Malignant neoplasm of upper lobe, right bronchus or lung (4) Anemia Current Visit: Yes Status: Acute Assessment and plan: secondary to chemotherapy. Hemoglobin stable. No active bleeding. Stop Lovenox. Monitor H&H. Qualifiers: Other causes of anemia: antineoplastic chemotherapy Qualified Code(s): D64.81 - Anemia due to antineoplastic chemotherapy; T45.1X5A - Adverse effect of antineoplastic and immunosuppressive drugs, initial encounter (5) DVT prophylaxis Current Visit: Yes Status: Acute Assessment and plan: SCDs with anemia - Time Spent With Patient Total time spent is greater than 50% in coordination of care (as documented) at patient's floor/unit and/or counseling patient: - Subjective Interval history: Seen and examined at bedside. Says he does not feel well. Complains of general weakness and malaise. Still having fevers. Has a productive cough at times. - Constitutional Vitals: Temp Pulse Resp BP Pulse Ox 97.7 F 90 16 106/65 94 04/01/18 11:11 04/01/18 11:11 04/01/18 11:11 04/01/18 11:11 04/01/18 11:11 General appearance: Present: A&O X 3, no acute distress - Head Head exam: Present: atraumatic, normocephalic - Eye Eye exam: Present: PERRL, conjuntiva pink, sclera anicteric Pupils: Present: PERRL - Neck Neck exam general surgery: Present: supple, trachea midline. Absent: lymphadenopathy - Respiratory Respiratory exam: Present: CTAB. Absent: accessory muscle use, rales, rhonchi, wheezes - Cardiovascular Cardiovascular exam: Present: RRR, +S1, +S2. Absent: diastolic murmur, gallop, rubs, systolic murmur - GI/Abdominal GI/Abdominal exam: Present: normal bowel sounds, soft, no peritoneal signs. Absent: distended, tenderness - Extremities Exam Extremities exam: Present: warm, radial pulses palpable and symmetrical. Absent : calf tenderness, cyanotic, pedal edema - Neurological Exam Neurological exam: Present: CN II-XII intact, oriented X3, no focal deficits. Absent: pronater drift, facial droop, speech deficit - Skin Skin exam: Present: dry, intact Internal Medicine: Result - Labs CBC & Chem 7: 04/01/18 04:01 04/01/18 04:01 Labs: Short CBC 04/01/18 Range/Units 04:01 WBC 4.8 (4.3-11.1) K/mcL Hgb 8.3 L (12.9-16.9) g/dL Hct 25.5 L (37.5-50.1) % Plt Count 131 L (140-400) K/mcL [facility] 04/01/18 04:01 Sodium 134 L Potassium 3.8 Chloride 105 Carbon Dioxide 24 BUN 11 Creatinine 0.70 Glucose 122 H Calcium 8.2 L - Impressions Impressions Chest CTA 03/31/18 11:24 IMPRESSION: 1. No evidence for acute pulmonary embolism. 2. Mild centrilobular emphysema. 3. Mild hilar adenopathy. Significant decrease in size of right infrahilar mass as well as marked improvement in discrete and confluent consolidative right lower lobe densities. Small right pleural effusion is also resolving. 4. New extensive right upper lobe airspace disease spurring anterior portions of anterior segment and lingula. Differential is bacterial pneumonitis or radiation pneumonitis. D/ / Senthil Kunz MD / Senthil Kunz MD Interpreting Provider: Senthil Kunz MD Consult Discharge Plan - Plan Referrals: Zander Christina DO [Primary Care Provider] - 04/08/18 2:00 pm
[2018-04-01] MEDS: Ibuprofen 400 MG TABLET PO PRN (18:37)
[2018-04-02] MEDS: Piperacillin/Tazobactam 3.375 GM in 0.9 % Sodium Chloride Mini Bag 100 ML IVPB SCH ×3 (01:01→15:51)
[2018-04-02] MEDS: Ipratropium/Albuterol Neb 3 ML IH SCH ×4 (04:11→23:27)
[2018-04-02 07:46] LABS: Hemoglobin 9.2 g/dL (12.9-16.9); Mean Corpuscular HGB Conc 34.1 g/dL (31.6-35.5); Mean Corpuscular Hemoglobin 29.9 pg (28.0-33.3); Mean Corpuscular Volume 87.7 fL (83.0-100.0); Mean Platelet Volume 9.3 fL (9.4-12.4); Platelet Count 154 K/mcL (140-400); Red Blood Count 3.08 M/mcL (4.19-5.50); Red Cell Distribution Width 17.1 % (11.5-14.5)
[2018-04-02 08:02] LABS: BUN/Creatinine Ratio 20 (6-26); Blood Urea Nitrogen 12 mg/dL (8-23); Calcium 8.3 mg/dL (8.6-10.3); Carbon Dioxide 19 mEq/L (23-29); Chloride 105 mEq/L (98-107); Glucose 111 mg/dL (70-105); Osmolality,Calculated 278 (280-300); Potassium 3.1 mEq/L (3.5-5.1); Sodium 134 mEq/L (136-145); eGFR For African Americans > 60 (> 60); eGFR For Non-African Americans > 60 (> 60)
[2018-04-02] MEDS: Sucralfate 1 GM TABLET PO SCH ×4 (08:12→21:33)
[2018-04-02] MEDS: 0.9 % Sodium Chloride 1,000 ML IVC SCH (10:32)
--- NOTE | 2018-04-02 11:01 | Internal Med Progress Note ---
Date of Encounter: 04/02/18 Time of Encounter: 10:35 - Assessment and plan (1) Lung cancer Current Visit: Yes Status: Acute Assessment and plan: Radiation 1 week ago, chemotherapy 2 weeks ago. Continue to follow with oncology. Qualifiers: Laterality: right Lung location: upper lobe of lung Qualified Code(s): C34.11 - Malignant neoplasm of upper lobe, right bronchus or lung (2) Sepsis Current Visit: Yes Status: Resolved Assessment and plan: Resolved. Secondary to pneumonia. Afebrile for > 12 hours. No tachypnea. Tachycardia continues to improve. Leukocytosis has resolved. Continue IV ATB as noted above. Overall improved/hemodynamically stable and pt states that he is feeling better. Qualifiers: Sepsis type: sepsis due to unspecified organism Qualified Code(s): A41.9 - Sepsis, unspecified organism (3) PNA (pneumonia) Current Visit: Yes Status: Acute Assessment and plan: CXR with new PARI pneumonia. Respiratory PCR negative. Legionella and Strep pneumo antigens negative. Blood cultures no growth to date. Cont Zosyn and vancomycin. Consider de-escalating if remains afebrile and clinically improving on 04/03 exam. Pt reports productive cough with clear, thick sputum. Pt is on room air, does not have home 02. Qualifiers: Pneumonia type: due to unspecified organism Laterality: left Lung location: upper lobe of lung Qualified Code(s): J18.1 - Lobar pneumonia, unspecified organism (4) Anemia Current Visit: Yes Status: Acute Assessment and plan: Secondary to chemotherapy. Hemoglobin stable and improving today, 9.2. No active bleeding. Stopped Lovenox, SCDs ordered. Continue to monitor H&H. Qualifiers: Other causes of anemia: antineoplastic chemotherapy Qualified Code(s): D64.81 - Anemia due to antineoplastic chemotherapy; T45.1X5A - Adverse effect of antineoplastic and immunosuppressive drugs, initial encounter (5) DVT prophylaxis Current Visit: Yes Status: Acute Assessment and plan: SCDs ordered. No pharmacological prophylaxis due to chronic anemia. - Time Spent With Patient Total time spent is greater than 50% in coordination of care (as documented) at patient's floor/unit and/or counseling patient: less than 15 minutes - Constitutional Vitals: Temp Pulse Resp BP Pulse Ox 98.7 F 98 16 120/63 93 04/02/18 07:08 06/19/18 07:08 04/02/18 07:08 04/02/18 07:08 04/02/18 07:08 General appearance: Present: cooperative, A&O X 3, pleasant, no acute distress, answers questions appropriately - Head Head exam: Present: atraumatic, normal inspection, normocephalic - Eye Eye exam: Present: normal appearance, conjuntiva pink, sclera anicteric - Neck Neck exam general surgery: Present: supple, trachea midline. Absent: lymphadenopathy, tenderness - Respiratory Respiratory exam: Present: decreased breath sounds, CTAB, wheezes. Absent: accessory muscle use, rales, respiratory distress, rhonchi - Cardiovascular Cardiovascular exam: Present: RRR, +S1, +S2. Absent: diastolic murmur, gallop, rubs, systolic murmur - GI/Abdominal GI/Abdominal exam: Present: normal bowel sounds, soft. Absent: distended, hepatomegaly, tenderness - Extremities Exam Extremities exam: Present: normal capillary refill, normal inspection, warm, radial pulses palpable and symmetrical. Absent: calf tenderness, cyanotic, pedal edema, tenderness - Neurological Exam Neurological exam: Present: alert, oriented X3, no focal deficits. Absent: facial droop, speech deficit - Skin Skin exam: Present: dry, intact, normal color, warm. Absent: rash Internal Medicine: Result - Labs CBC & Chem 7: 04/02/18 07:25 04/02/18 07:25 Labs: Short CBC 04/02/18 Range/Units 07:25 WBC 5.1 (4.3-11.1) K/mcL Hgb 9.2 L (12.9-16.9) g/dL Hct 27.0 L (37.5-50.1) % Plt Count 154 (140-400) K/mcL BMP 04/02/18 07:25 Sodium 134 L Potassium 3.1 L Chloride 105 Carbon Dioxide 19 L BUN 12 Creatinine 0.60 L Glucose 111 H Calcium 8.3 L - VTE Documentation of Mechanical Device: Intermittent pneumatic compression device Consult Discharge Plan - Plan Referrals: Zander Christina DO [Primary Care Provider] - 04/08/18 2:00 pm
[2018-04-02] MEDS: Acetaminophen 325 MG TABLET PO PRN ×2 (15:51→23:48)
[2018-04-03] MEDS: Piperacillin/Tazobactam 3.375 GM in 0.9 % Sodium Chloride Mini Bag 100 ML IVPB SCH ×3 (00:56→16:40)
[2018-04-03] MEDS: Ipratropium/Albuterol Neb 3 ML IH SCH ×4 (03:49→22:25)
[2018-04-03] MEDS: 0.9 % Sodium Chloride 1,000 ML IVC SCH ×2 (05:23→20:49)
[2018-04-03] MEDS: Ibuprofen 400 MG TABLET PO PRN ×2 (05:24→16:39)
[2018-04-03 05:27] LABS: Hematocrit 26.5 % (37.5-50.1); Hemoglobin 8.9 g/dL (12.9-16.9); Immature Platelets 2.5 % (1.1-6.1); Mean Corpuscular HGB Conc 33.6 g/dL (31.6-35.5); Mean Corpuscular Hemoglobin 30.1 pg (28.0-33.3); Mean Corpuscular Volume 89.5 fL (83.0-100.0); Mean Platelet Volume 9.9 fL (9.4-12.4); Red Blood Count 2.96 M/mcL (4.19-5.50); Red Cell Distribution Width 17.2 % (11.5-14.5)
[2018-04-03 05:43] LABS: BUN/Creatinine Ratio 13 (6-26); Blood Urea Nitrogen 9 mg/dL (8-23); Calcium 8.3 mg/dL (8.6-10.3); Carbon Dioxide 21 mEq/L (23-29); Chloride 106 mEq/L (98-107); Glucose 120 mg/dL (70-105); Osmolality,Calculated 284 (280-300); Potassium 3.1 mEq/L (3.5-5.1); Sodium 137 mEq/L (136-145); eGFR For African Americans > 60 (> 60); eGFR For Non-African Americans > 60 (> 60)
[2018-04-03] MEDS: Sucralfate 1 GM TABLET PO SCH ×4 (08:14→20:50)
[2018-04-03] MEDS: Acetaminophen 325 MG TABLET PO PRN (15:22)
--- NOTE | 2018-04-03 17:56 | Internal Med Progress Note ---
Date of Encounter: 04/03/18 Time of Encounter: 10:10 - Assessment and plan (1) Lung cancer Current Visit: Yes Status: Acute Assessment and plan: Radiation 1 week ago, chemotherapy 2 weeks ago. Continue to follow with oncology after discharge. Patient was also evaluated by oncology here in the hospital. I appreciate the recommendations. They agree with plan of care and no further recommendations. Qualifiers: Laterality: right Lung location: upper lobe of lung Qualified Code(s): C34.11 - Malignant neoplasm of upper lobe, right bronchus or lung (2) Sepsis Current Visit: Yes Status: Resolved Assessment and plan: Secondary to pneumonia. Patient continues to have intermittent fevers. No tachypnea. Tachycardia associated with fevers. Leukocytosis has resolved. Continue IV ATB as noted above. Overall improved/hemodynamically stable and pt states that he is feeling better. I have requested that infectious disease evaluate the patient. Recommendations are pending. I appreciate his consultation. Patient has no hypotension. Continue to monitor labs and vitals. Qualifiers: Sepsis type: sepsis due to unspecified organism Qualified Code(s): A41.9 - Sepsis, unspecified organism (3) PNA (pneumonia) Current Visit: Yes Status: Acute Assessment and plan: CXR with PARI pneumonia. Respiratory PCR negative. Legionella and Strep pneumo antigens negative. Blood cultures no growth to date. Cont Zosyn and vancomycin. Pt reports productive cough with clear, thick sputum, estimate the lab for culture. Pt is on room air, does not have home 02. Patient continues to have fevers despite IV antibiotics. Infectious disease has been consulted. Continue IV antibiotics, O2 as needed, bronchodilators, guaifenesin Treat fever with Tylenol Oncology and ID are following. ID recommendations to follow. Qualifiers: Pneumonia type: due to unspecified organism Laterality: left Lung location: upper lobe of lung Qualified Code(s): J18.1 - Lobar pneumonia, unspecified organism (4) Anemia Current Visit: Yes Status: Acute Assessment and plan: Secondary to chemotherapy. Hemoglobin stable, 8.9. No active bleeding. Stopped Lovenox, SCDs ordered. Continue to monitor H&H. Oncology following, no new recommendations, agree with treatment plan. Qualifiers: Other causes of anemia: antineoplastic chemotherapy Qualified Code(s): D64.81 - Anemia due to antineoplastic chemotherapy; T45.1X5A - Adverse effect of antineoplastic and immunosuppressive drugs, initial encounter (5) DVT prophylaxis Current Visit: Yes Status: Acute Assessment and plan: SCDs ordered. Encourage ambulation. No pharmacological prophylaxis due to chronic anemia. - Time Spent With Patient Total time spent is greater than 50% in coordination of care (as documented) at patient's floor/unit and/or counseling patient: less than 15 minutes - Subjective Interval history: Patient was seen and assessed this morning at 10:10 AM. Patient reports that he is feeling somewhat better and was in agreement with seeing infectious disease physician today. Patient is still having low-grade fever today. Patient denies any headache, blurred vision, neck pain, URI symptoms. He denies any chest pain or shortness of breath. Denies any abdominal pain, nausea , vomiting, diarrhea. He denies any new peripheral edema or numbness or tingling to the extremities. - Constitutional Vitals: Temp Pulse Resp BP Pulse Ox 101.3 F H 91 18 156/87 94 04/03/18 16:10 04/03/18 15:20 04/03/18 15:20 04/03/18 15:20 04/03/18 15:20 General appearance: Present: cooperative, A&O X 3, pleasant, no acute distress, answers questions appropriately - Head Head exam: Present: atraumatic, normal inspection, normocephalic - Eye Eye exam: Present: normal appearance, conjuntiva pink, sclera anicteric - Neck Neck exam general surgery: Present: supple, trachea midline. Absent: lymphadenopathy, tenderness - Respiratory Respiratory exam: Present: decreased breath sounds, CTAB. Absent: accessory muscle use, chest wall tenderness, rales, respiratory distress, rhonchi, wheezes - Cardiovascular Cardiovascular exam: Present: RRR, +S1, +S2. Absent: diastolic murmur, gallop, rubs, systolic murmur - GI/Abdominal GI/Abdominal exam: Present: normal bowel sounds, soft, no peritoneal signs. Absent: distended, hepatomegaly, tenderness - Extremities Exam Extremities exam: Present: normal capillary refill, normal inspection, warm, radial pulses palpable and symmetrical. Absent: calf tenderness, cyanotic, pedal edema, tenderness - Neurological Exam Neurological exam: Present: alert, oriented X3, no focal deficits. Absent: facial droop, speech deficit - Skin Skin exam: Present: dry, intact, normal color, warm. Absent: rash Internal Medicine: Result - Labs CBC & Chem 7: 04/03/18 04:05 04/03/18 04:05 Labs: Short CBC 04/03/18 Range/Units 04:05 WBC 4.1 L (4.3-11.1) K/mcL Hgb 8.9 L (12.9-16.9) g/dL Hct 26.5 L (37.5-50.1) % Plt Count 154 (140-400) K/mcL BMP 04/03/18 04:05 Sodium 137 Potassium 3.1 L Chloride 106 Carbon Dioxide 21 L BUN 9 Creatinine 0.68 L Glucose 120 H Calcium 8.3 L - VTE Documentation of Mechanical Device: Intermittent pneumatic compression device Consult Discharge Plan - Plan Referrals: Zander Christina DO [Primary Care Provider] - 04/08/18 2:00 pm
--- NOTE | 2018-04-03 18:26 | Infectious Disease Consult ---
Date of Encounter: 04/03/18 Time of Encounter: 18:11 Assessment and Plan (1) Sepsis Status: Resolved Assessment and plan: Secondary to pneumonia versus other Patient has been on vancomycin and Zosyn for 5 days and continues to have fevers. Patient does not appear toxic Qualifiers: Sepsis type: sepsis due to unspecified organism Qualified Code(s): A41.9 - Sepsis, unspecified organism (2) HCAP (healthcare-associated pneumonia) Status: Acute Assessment and plan: causative organism not clear; patient had respiratory infectious panel done which was negative, urine legionella and pneumococcal antigen done which were negative Patient had blood cultures which were negative It is really hard to distinguish if this is an infectious pneumonia versus pneumonitis due to radiation. Patient has been on vancomycin and Zosyn since March 30 Recommend pulmonary consultation Repeat CT chest I will DC vancomycin and Zosyn start the patient on levofloxacin We will await pulmonary recommendations (3) Persistent fever Status: Acute Assessment and plan: I monitor not sure was causing the persistent fever. Review of system is really only positive for a cough. No sinus pressure no toothache no backache no abdominal pain no urinary symptoms. I am not sure if it is the pneumonia that is causing it or if there is an occult infection that we are missing. I will check LFTs, lipase, amylase, repeat blood cultures 2 and procalcitonin levels. I am repeating CT chest maybe will do CT abdomen and pelvis at the same time. (4) Lung cancer Status: Acute Assessment and plan: Diagnosed in February 2018 Received 6 weeks worth of chemotherapy and today sessions of radiation. Has been out of chemotherapy for 2 weeks Qualifiers: Laterality: right Lung location: upper lobe of lung Qualified Code(s): C34.11 - Malignant neoplasm of upper lobe, right bronchus or lung Infectious Disease HPI - Data of Consult Patient: new to practice Consult date: 04/03/18 Requesting Physician: Terrell Joshi Primary Care Provider: Corey Chowdhury - Consult Narrative Reason for consult: persistent pneumonia History of present illness: Mr. Wilburn is a 62 year old male Patient is a 8-year-old gentleman who was admitted to [facility] on 03/30 for persistent cough and pneumonia. We are consulted today for persistent pneumonia not improving and antibiotics recommendations. 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 Intake service of the right pleural effusion which was negative for malignancy. Patient was started on radiation therapy and chemotherapy with carbotaxol in February 2018. Patient completed the chemotherapy 6 weeks session 2 weeks ago and he finished the 30 sessions of radiation. Patient is being followed by Dr. Whelan. Patient tells me that while who was on chemotherapy he was diagnosed with pneumonia and was treated with levofloxacin by mouth on 2017. Patient tells me that he has been feeling weak and tired and started having fevers at home 102 103 Fahrenheit. Patient denies any headache, no URI symptoms , no sore throat, he does have this chronic cough that has been getting progressively worse he tells me starting a week prior to admission with some clear sputum production. Patient denies hemoptysis. He had no chest pain he had no shortness of breath. Patient also had no nausea or vomiting no abdominal pain no diarrhea or constipation. Patient denies any urinary symptoms. Patient denies any joint pain or swelling. Patient denies any rash. Patient denies any toothache. Since admission patient has been febrile. Initially his temperature was about 102.4 Fahrenheit. Patient was also tachycardic. Presenting labs revealed, a WBC of 4.1 with 72% neutrophils, BMP showed normal BUN and creatinine of 18 and 0.87 respectively. A urinalysis was negative. A respiratory infectious panel was done on 03/31 and it did not detect any organism urine legionella and pneumococcal antigen on 616 were also negative. Blood cultures obtained and were negative. a CT chest on 617 reveals no evidence for acute pulmonary embolism, mild centrilobular emphysema, mild hilar adenopathy. Significant decrease in size of right infrahilar mass as well as marketed improvement in discrete and confluent consolidation right lower lobe density. We will also resolving. New extensive right upper lobe airspace disease or an anterior portions of anterior segment and lingula. Differential is bacterial pneumonitis or radiation pneumonitis. Patient was given a dose of azithromycin and Zosyn on 03/30 followed by vancomycin and Zosyn until today. CC: Terrell Joshi Past Med Surg Social Fam HX - Past Medical History Medical history: cancer, COPD, hepatitis, other Additional medical history: lung CA, past smoker, past drinker Psychiatric history: anxiety - Past Surgical History Surgical History: orthopedic, other, other Additional surgical history: back surgery - Social History Smoking Status: Former smoker Smokeless Tobacco Status: No Alcohol use: heavy Drug use: marijuana - Family History Father Living Status: Still Living Hx Family Cardiac Disorders: Yes Hx Family Neuromuscular Disorders: Yes Infectious Disease-CN:Meds Albuterol Sulfate [Albuterol Inhaler] 2 puff IH Q4H PRN 01/15/18 [History] Multivit-Minerals/Folic Acid [Adult One Daily Gummies] 400 mcg PO DAILY [History] Ondansetron [Zofran] 8 mg PO Q8HR PRN #60 tablet 02/07/18 [Rx] Prochlorperazine Maleate [Compazine] 10 mg PO Q6HR PRN #90 tablet 02/07/18 [Rx] GuaiFENesin/Codeine [ROBITUSSIN w/CODEINE] 10 ml PO Q6HR PRN 20 Days #800 ml 07/02 [Rx] Albuterol Neb [AccuNeb] 0.63 mg IH PRN PRN #30 inhsol 02/25/18 [Rx] Magic Mouthwash [Magic Mouthwash BLM] 10 ml PO QID PRN #400 ml 02/27/18 [Rx] Omeprazole [PriLOSEC] 20 mg PO DAILY 03/04/18 [History] Sucralfate [Carafate] 1 gm PO QIDAC #120 tablet 03/04/18 [Rx] 3 Allergy/AdvReac Type Severity Reaction Status Date / Time No Known Allergies Allergy Verified 03/19/18 08:30 Review of systems: 10 point review of systems done, negative other for what mentioned in the history of present illness Exam - Constitutional Vitals: Temp Pulse Resp BP Pulse Ox 101.3 F H 91 18 156/87 94 04/03/18 16:10 04/03/18 15:20 04/03/18 15:20 04/03/18 15:20 04/03/18 15:20 General appearance: febrile, cooperative, no acute distress - Head Head exam: Present: atraumatic, normocephalic - Eye Eye exam: Present: EOMI, PERRL, sclera anicteric - ENT ENT exam: Present: mucous membranes dry - Neck Neck exam: Present: full ROM. Absent: meningismus - Respiratory Additional comments: air sounds audible both lung sanon. expiratory wheezing noted. no ronchi - Cardiovascular Cardiovascular exam: Present: RRR, +S1. Absent: diastolic murmur, systolic murmur - GI/Abdominal GI/Abdominal exam: Present: normal bowel sounds, soft. Absent: tenderness - Extremities Exam Extremities exam: Present: full ROM. Absent: pedal edema - Neurological Exam Neurological exam: Present: alert, oriented X3. Absent: speech deficit - Psychiatric Psychiatric exam: Present: normal affect, normal mood - Skin Skin exam: Present: normal color. Absent: rash Infectious Disease CN: Results - Labs CBC & Chem 7: 04/03/18 04:05 04/03/18 04:05 Cultures: Cultures 03/30/18 20:50 Legionella Antigen - Final Urine,Clean Catch Streptococcus pneumoniae Antigen (M - Final Serology: Serology 03/31/18 Range/Units 11:35 Chlamy pneumoniae PCR Not Detected (Not Detect) Adenovirus (PCR) Not Detected (Not Detect) B. pertussis DNA (PCR) Not Detected (Not Detect) B.parapertussis DNA PCR Not Detected (Not Detect) Coronavirus OC43 (PCR) Not Detected (Not Detect) Coronavirus HKU1 (PCR) Not Detected (Not Detect) Coronavirus 229E (PCR) Not Detected (Not Detect) Coronavirus NL63 (PCR) Not Detected (Not Detect) Human Metapneumovir PCR Not Detected (Not Detect) Influenza A (H1) PCR Not Detected (Not Detect) Influ A (H1N1/09) PCR Not Detected (Not Detect) Influenza A (H3) PCR Not Detected (Not Detect) Influenza A Untype (PCR) Not Detected (Not Detect) Influenza Type B (PCR) Not Detected (Not Detect) M.pneumoniae DNA (PCR) Not Detected (Not Detect) Parainfluenza 1 (PCR) Not Detected (Not Detect) Parainfluenza 2 (PCR) Not Detected (Not Detect) Parainfluenza 3 (PCR) Not Detected (Not Detect) Parainfluenza 4 (PCR) Not Detected (Not Detect) RSV (PCR) Not Detected (Not Detect) Entero/Rhino (PCR) Not Detected (Not Detect) - VTE Documentation of Mechanical Device: Intermittent pneumatic compression device Consult Discharge Plan - Plan Referrals: Zander Christina DO [Primary Care Provider] - 04/08/18 2:00 pm
[2018-04-03] MEDS: Magic Mouthwash 10 ML UD Cup PO PRN (20:59)
[2018-04-04] MEDS: Piperacillin/Tazobactam 3.375 GM in 0.9 % Sodium Chloride Mini Bag 100 ML IVPB SCH ×2 (00:06→08:21)
[2018-04-04] MEDS: Ipratropium/Albuterol Neb 3 ML IH SCH ×4 (03:52→21:59)
[2018-04-04 06:26] LABS: Hematocrit 23.2 % (37.5-50.1); Hemoglobin 7.9 g/dL (12.9-16.9); Mean Corpuscular HGB Conc 34.1 g/dL (31.6-35.5); Mean Corpuscular Hemoglobin 30.3 pg (28.0-33.3); Mean Corpuscular Volume 88.9 fL (83.0-100.0); Mean Platelet Volume 9.6 fL (9.4-12.4); Platelet Count 140 K/mcL (140-400); Red Blood Count 2.61 M/mcL (4.19-5.50); Red Cell Distribution Width 17.4 % (11.5-14.5)
[2018-04-04 06:47] LABS: BUN/Creatinine Ratio 12 (6-26); Blood Urea Nitrogen 8 mg/dL (8-23); Calcium 7.9 mg/dL (8.6-10.3); Carbon Dioxide 22 mEq/L (23-29); Chloride 109 mEq/L (98-107); Glucose 102 mg/dL (70-105); Osmolality,Calculated 285 (280-300); Potassium 3.4 mEq/L (3.5-5.1); Sodium 138 mEq/L (136-145); eGFR For African Americans > 60 (> 60); eGFR For Non-African Americans > 60 (> 60)
[2018-04-04] MEDS ORDERED: Aminoglycoside Consult 1 EACH MC ONE (07:47)
[2018-04-04] MEDS: Sucralfate 1 GM TABLET PO SCH ×4 (08:12→21:08)
[2018-04-04] MEDS: 0.9 % Sodium Chloride 1,000 ML IVC SCH (11:48)
[2018-04-04] MEDS: Levofloxacin 750 MG/150 ML 750 MG/150 ML BAG IVPB SCH (11:49)
--- NOTE | 2018-04-04 13:04 | Infectious Disease Progress No ---
Date of Encounter: 04/04/18 Time of Encounter: 13:01 - Assessment and Plan (1) Sepsis Current Visit: Yes Status: Resolved resolved Secondary to pneumonia versus other Patient has been on vancomycin and Zosyn for 5 days and continues to have fevers. Patient does not appear toxic Qualifiers: Sepsis type: sepsis due to unspecified organism Qualified Code(s): A41.9 - Sepsis, unspecified organism (2) HCAP (healthcare-associated pneumonia) Current Visit: Yes Status: Acute causative organism not clear; patient had respiratory infectious panel done which was negative, urine legionella and pneumococcal antigen done which were negative Patient had blood cultures which were negative It is really hard to distinguish if this is an infectious pneumonia versus pneumonitis due to radiation. Patient has been on vancomycin and Zosyn since March 30 Recommend pulmonary consultation Repeat CT chest started on levofloxacin We will await pulmonary recommendations (3) Persistent fever Current Visit: Yes Status: Acute I am not sure was causing the persistent fever. Review of system is really only positive for a cough. No sinus pressure no toothache no backache no abdominal pain no urinary symptoms. I am not sure if it is the pneumonia that is causing it or if there is an occult infection that we are missing. I will check LFTs, lipase, amylase, repeat blood cultures 2 and procalcitonin levels. I am repeating CT chest maybe will do CT abdomen and pelvis at the same time if patient starts having fevers again. in the mean time, we might just continue to observe. (4) Lung cancer Current Visit: Yes Status: Acute Diagnosed in February 2018 Received 6 weeks worth of chemotherapy and today sessions of radiation. Has been out of chemotherapy for 2 weeks Qualifiers: Laterality: right Lung location: upper lobe of lung Qualified Code(s): C34.11 - Malignant neoplasm of upper lobe, right bronchus or lung - Subjective Interval history: Patient seen and examined. Denies any headache. No blurred vision. Denies any chest pain. Continues to have cough but slightly improved. Having some diarrhea but only one soft bowel movement today. No urinary symptoms. Patient has been afebrile for almost 24 hours Hemodynamically stable Labs reveal a week she will 3.1 no differential. Creatinine 0.68. Sputum culture negative. Infect Dis PN-Objective Data - Labs CBC & Chem 7: 04/04/18 05:11 04/04/18 05:11 Labs: Laboratory Results - last 24 hr 04/03/18 04/04/18 04/04/18 21:58 05:11 05:11 WBC 3.1 L RBC 2.61 L Hgb 7.9 L Hct 23.2 L MCV 88.9 MCH 30.3 MCHC 34.1 RDW 17.4 H Plt Count 140 MPV 9.6 Sodium 138 Potassium 3.4 L Chloride 109 H Carbon Dioxide 22 L BUN 8 Creatinine 0.68 L Est GFR ( Amer) > 60 Est GFR (Non-Af Amer) > 60 BUN/Creatinine Ratio 12 Glucose 102 Calculated Osmolality 285 Calcium 7.9 L Vancomycin Trough 12 H Cultures: Cultures 04/03/18 16:48 Sputum Culture - Preliminary Sputum 03/30/18 20:50 Legionella Antigen - Final Urine,Clean Catch Streptococcus pneumoniae Antigen (M - Final Serology 03/31/18 Range/Units 11:35 Chlamy pneumoniae PCR Not Detected (Not Detect) Adenovirus (PCR) Not Detected (Not Detect) B. pertussis DNA (PCR) Not Detected (Not Detect) B.parapertussis DNA PCR Not Detected (Not Detect) Coronavirus OC43 (PCR) Not Detected (Not Detect) Coronavirus HKU1 (PCR) Not Detected (Not Detect) Coronavirus 229E (PCR) Not Detected (Not Detect) Coronavirus NL63 (PCR) Not Detected (Not Detect) Human Metapneumovir PCR Not Detected (Not Detect) Influenza A (H1) PCR Not Detected (Not Detect) Influ A (H1N1/09) PCR Not Detected (Not Detect) Influenza A (H3) PCR Not Detected (Not Detect) Influenza A Untype (PCR) Not Detected (Not Detect) Influenza Type B (PCR) Not Detected (Not Detect) M.pneumoniae DNA (PCR) Not Detected (Not Detect) Parainfluenza 1 (PCR) Not Detected (Not Detect) Parainfluenza 2 (PCR) Not Detected (Not Detect) Parainfluenza 3 (PCR) Not Detected (Not Detect) Parainfluenza 4 (PCR) Not Detected (Not Detect) RSV (PCR) Not Detected (Not Detect) Entero/Rhino (PCR) Not Detected (Not Detect) Exam - Constitutional Vitals: Temp Pulse Resp BP Pulse Ox 98.7 F 89 16 120/74 92 04/04/18 11:45 04/04/18 11:45 04/04/18 11:45 04/04/18 11:45 04/04/18 11:45 General appearance: no acute distress, no febrile - Head Head exam: Present: atraumatic, normocephalic - ENT ENT exam: Present: mucous membranes moist Additional comments: no oral thrush - Respiratory Additional comments: decreased breath sounds bilaterally; some diffuse wheezing - Cardiovascular Cardiovascular exam: Present: RRR, +S1, +S2 - GI/Abdominal GI/Abdominal exam: Present: normal bowel sounds, soft. Absent: tenderness - Extremities Exam Extremities exam: Present: normal inspection. Absent: pedal edema - VTE Documentation of Mechanical Device: Intermittent pneumatic compression device Consult Discharge Plan - Plan Referrals: Zander Christina DO [Primary Care Provider] - 04/08/18 2:00 pm
[2018-04-04 14:05] LABS: Hematocrit 24.2 % (37.5-50.1); Hemoglobin 7.8 g/dL (12.9-16.9)
--- NOTE | 2018-04-04 15:52 | Pulmonology Consult Note ---
Date of Encounter: 04/04/18 Time of Encounter: 11:00 Assessment and Plan (1) Radiation pneumonitis Current Visit: Yes Status: Suspected This is a pleasant patient who has diagnosis of lung cancer and I suspect patient has most likely radiation pneumonitis, however pneumonia secondary to bacterial infection and atypical infections in the differential diagnosis for that reason I feel bronchoscopy and evaluation for infection is helpful and to have explained to him all the risks, alternatives, benefits of the procedure and he understand and he agreed to have been done. If there is no evidence of infection systemic steroid would be recommended which most likely would help his symptoms. This is discussed with primary team and plan for bronchoscopy tomorrow. Please keep patient nothing by mouth postmidnight. And thank you for your consultation. (2) PNA (pneumonia) Current Visit: Yes Status: Suspected Qualifiers: Pneumonia type: due to unspecified organism Laterality: left Lung location: upper lobe of lung Qualified Code(s): J18.1 - Lobar pneumonia, unspecified organism (3) Lung cancer Current Visit: Yes Status: Chronic Qualifiers: Laterality: right Lung location: upper lobe of lung Qualified Code(s): C34.11 - Malignant neoplasm of upper lobe, right bronchus or lung History of Present Illness Consult date: 04/04/18 Requesting physician: Pia Villarreal Reason for consult: pneumonia Chief complaint: Fever and cough History of present illness: This is a very pleasant 62-year-old male who is known to me and he has diagnosis of lung cancer. I have done bronchoscopy initially for diagnosis of his lung cancer. Patient has been treated with radiation and he had CT chest with changes suggestive of pneumonitis/pneumonia and pulmonary consulted for evaluation. Patient does mainly nonproductive cough, however he does have some sputum production occasionally which is white. Patient has some chest discomfort from coughing and no significant wheezing or hemoptysis. Patient also been complaining having fever. Overall the patient significant improvement yet. Past Med Surg Social Fam HX - Past Medical History Medical history: cancer, COPD, hepatitis, other Additional medical history: lung CA, past smoker, past drinker Psychiatric history: anxiety - Past Surgical History Surgical History: orthopedic, other, other Additional surgical history: back surgery - Social History Smoking Status: Former smoker Smokeless Tobacco Status: No Alcohol use: heavy Drug use: marijuana - Family History Father Living Status: Still Living Hx Family Cardiac Disorders: Yes Hx Family Neuromuscular Disorders: Yes Medications and Allergies Albuterol Sulfate [Albuterol Inhaler] 2 puff IH Q4H PRN 01/15/18 [History] Multivit-Minerals/Folic Acid [Adult One Daily Gummies] 400 mcg PO DAILY [History] Ondansetron [Zofran] 8 mg PO Q8HR PRN #60 tablet 02/07/18 [Rx] Prochlorperazine Maleate [Compazine] 10 mg PO Q6HR PRN #90 tablet 02/07/18 [Rx] GuaiFENesin/Codeine [ROBITUSSIN w/CODEINE] 10 ml PO Q6HR PRN 20 Days #800 ml 07/02 [Rx] Albuterol Neb [AccuNeb] 0.63 mg IH PRN PRN #30 inhsol 02/25/18 [Rx] Magic Mouthwash [Magic Mouthwash BLM] 10 ml PO QID PRN #400 ml 02/27/18 [Rx] Omeprazole [PriLOSEC] 20 mg PO DAILY 03/04/18 [History] Sucralfate [Carafate] 1 gm PO QIDAC #120 tablet 03/04/18 [Rx] 3 Allergy/AdvReac Type Severity Reaction Status Date / Time No Known Allergies Allergy Verified 03/19/18 08:30 All Systems: The remainder of the systems were reviewed and are negative Physical Examination Vital Signs: Vital Signs, Last 4 Hours Temp Pulse Resp BP Pulse Ox 04/04/18 15:38 97.5 F L 92 16 130/76 94 04/04/18 15:30 20 97 General - AAO x 3 Psych - Appropriate affect/speech. No agitation Eyes - DARRIUS. Eye lids intact. No scleral icterus Neuro - No gross peripheral or central neuro deficits on inspection Heart - Sinus. RRR. S1 and S2 present. No added HS/murmurs appreciated. No elevated JVD appreciated. Lung - Adequate air entry b/l, scattered rhonchi in the right side, no wheezes appreciated GI - Soft, non-tender. No hepatosplenomegaly/ascites. BS+ - No CVA/suprapubic tenderness or palpable bladder distension Skin - Intact. No rash/petechiae/ecchymosis. Warm extremities Results - Laboratory Findings CBC and BMP: 04/04/18 17:39 04/04/18 05:11 Abnormal lab findings: Abnormal lab results WBC 3.1 K/mcL (4.3-11.1) L 04/04/18 05:11 RBC 2.61 M/mcL (4.19-5.50) L 04/04/18 05:11 Hgb 7.8 g/dL (12.9-16.9) L 04/04/18 11:53 Hct 24.2 % (37.5-50.1) L 04/04/18 11:53 RDW 17.4 % (11.5-14.5) H 04/04/18 05:11 Band Neutrophils % 22.0 % (0-4) H 03/31/18 04:39 Myelocytes % 2.0 % (0) H 03/31/18 04:39 Lymphocytes # 0.3 K/mcL (0.6-4.6) L 03/31/18 04:39 Toxic Granulation Present (Not Present) A 03/31/18 04:39 Platelet Estimate Slight Decrease (Normal) L 03/31/18 04:39 Potassium 3.4 mEq/L (3.5-5.1) L 04/04/18 05:11 Chloride 109 mEq/L (98-107) H 04/04/18 05:11 Carbon Dioxide 22 mEq/L (23-29) L 04/04/18 05:11 Creatinine 0.68 mg/dL (0.70-1.30) L 04/04/18 05:11 Calcium 7.9 mg/dL (8.6-10.3) L 04/04/18 05:11 Urine Clarity Cloudy (Clear) A 03/30/18 16:24 Ur Specific [place] 1.026 (1.010-1.025) H 03/30/18 16:24 Urine Protein 30 mg/dL (Neg-Trace) H 03/30/18 16:24 Urine Ketones 15 mg/dL (Negative) H 03/30/18 16:24 Urine Microscopic RBC 5-15 per hpf (0-3) H 03/30/18 16:24 Ur Squamous Epith Cells Moderate per lpf (None-Few) H 03/30/18 16:24 Vancomycin Trough 12 mcg/mL (5-10) H 04/03/18 21:58 - Microbiology Findings Microbiology Findings: Microbiology, Last 48 Hours 04/03/18 16:48 Sputum Culture - Preliminary Sputum - Diagnostic Findings CT scan - chest: report reviewed, image reviewed - Clinical Findings Intake & Output: Intake & Output 04/03/18 04/04/18 04/04/18 23:59 07:59 15:59 Intake Total 1700 / 1700 1440 / 1440 Output Total 700 / 700 1200 / 1200 Balance 1000 / 1000 -1200 / -1200 1440 / 1440 Weight 83.4 kg Consult Discharge Plan - Plan Referrals: Zander Christina DO [Primary Care Provider] - 04/08/18 2:00 pm
--- NOTE | 2018-04-04 17:11 | Internal Med Progress Note ---
Date of Encounter: 04/04/18 Time of Encounter: 10:00 - Assessment and plan (1) Lung cancer Current Visit: Yes Status: Acute Assessment and plan: Recently completed chemo and radiation. Continue to follow with oncology after discharge. Patient was also evaluated by oncology here in the hospital. I appreciate the recommendations. They agree with plan of care and no further recommendations. Pt also has been seen by pulmonology today, patient will be nothing by mouth after midnight for bronchoscopy in the morning. Qualifiers: Laterality: right Lung location: upper lobe of lung Qualified Code(s): C34.11 - Malignant neoplasm of upper lobe, right bronchus or lung (2) Sepsis Current Visit: Yes Status: Resolved Assessment and plan: Secondary to pneumonia. Patient continues to have intermittent fevers. No tachypnea. Tachycardia associated with fevers. Leukocytosis has resolved. No hypotension. Patient is pancytopenic WBC 3.1, hemoglobin 7.8, platelets have returned to normal today. Infectious disease has evaluated the patient today. Thank you for the recommendations. Suggested that it is hard for him to determine if this is an infectious process versus pneumonitis secondary to radiation. Blood cultures are negative, urine Legionella and strep pneumo antigen negative. IV vancomycin and Zosyn have been discontinued, Levaquin has been started. Continue to monitor labs and vitals. Qualifiers: Sepsis type: sepsis due to unspecified organism Qualified Code(s): A41.9 - Sepsis, unspecified organism (3) PNA (pneumonia) Current Visit: Yes Status: Acute Assessment and plan: CXR with PARI pneumonia. Respiratory PCR negative. Legionella and Strep pneumo antigens negative. Blood cultures no growth to date. Zosyn and vancomycin have been discontinued, continue Levaquin 750 mg IV daily. Pt reports productive cough with clear, thick sputum, cultures negative. Pt is on room air, does not have home 02. Patient continues to have fevers despite IV antibiotics. Infectious disease has seen the patient, changed antibiotics, recommend pulmonology consult. ID notes that it is difficult to determine if this is infectious process or radiation pneumonitis. She will have bronchoscopy tomorrow morning, nothing by mouth after midnight. Continue IV antibiotics, O2 as needed, bronchodilators, guaifenesin Treat fever with Tylenol Oncology, pulmonology, and ID are following. Qualifiers: Pneumonia type: due to unspecified organism Laterality: left Lung location: upper lobe of lung Qualified Code(s): J18.1 - Lobar pneumonia, unspecified organism (4) Anemia Current Visit: Yes Status: Acute Assessment and plan: Secondary to chemotherapy. Trending hemoglobin today, 7.9 this morning, 7.8 this afternoon. We will prepare to transfuse if hemoglobin drops below 7. No active bleeding. Stopped Lovenox, SCDs ordered. Continue to monitor H&H. Oncology following, no new recommendations, agree with treatment plan. Qualifiers: Other causes of anemia: antineoplastic chemotherapy Qualified Code(s): D64.81 - Anemia due to antineoplastic chemotherapy; T45.1X5A - Adverse effect of antineoplastic and immunosuppressive drugs, initial encounter (5) DVT prophylaxis Current Visit: Yes Status: Acute - Time Spent With Patient Total time spent is greater than 50% in coordination of care (as documented) at patient's floor/unit and/or counseling patient: less than 15 minutes - Subjective Interval history: Patient was seen and assessed this morning at 10:00 AM. Patient maintains that he is feeling somewhat better, but realizes that he is not ready to go home. Patient denies any headache, blurred vision, neck pain, URI symptoms. He denies any chest pain or shortness of breath. Denies any abdominal pain, nausea , vomiting, diarrhea. - Constitutional Vitals: Temp Pulse Resp BP Pulse Ox 97.5 F L 92 16 130/76 94 04/04/18 15:38 04/04/18 15:38 04/04/18 15:38 04/04/18 15:38 04/04/18 15:38 General appearance: Present: cooperative, A&O X 3, pleasant, no acute distress, answers questions appropriately - Head Head exam: Present: atraumatic, normal inspection, normocephalic - Eye Eye exam: Present: normal appearance, conjuntiva pink, sclera anicteric - Neck Neck exam general surgery: Present: normal inspection, supple, trachea midline. Absent: lymphadenopathy, tenderness - Respiratory Respiratory exam: Present: decreased breath sounds, CTAB. Absent: accessory muscle use, chest wall tenderness, rales, respiratory distress, rhonchi, wheezes - Cardiovascular Cardiovascular exam: Present: RRR, +S1, +S2. Absent: diastolic murmur, gallop, rubs, systolic murmur - GI/Abdominal GI/Abdominal exam: Present: normal bowel sounds, soft. Absent: distended, hepatomegaly, tenderness - Extremities Exam Extremities exam: Present: normal capillary refill, normal inspection, warm, radial pulses palpable and symmetrical. Absent: calf tenderness, cyanotic, pedal edema, tenderness - Neurological Exam Neurological exam: Present: alert, oriented X3, no focal deficits. Absent: motor sensory deficit, facial droop, speech deficit - Skin Skin exam: Present: dry, intact, normal color, warm. Absent: rash Internal Medicine: Result - Labs CBC & Chem 7: 04/04/18 11:53 04/04/18 05:11 Labs: Short CBC 04/04/18 04/04/18 Range/Units 05:11 11:53 WBC 3.1 L (4.3-11.1) K/mcL Hgb 7.9 L 7.8 L (12.9-16.9) g/dL Hct 23.2 L 24.2 L (37.5-50.1) % Plt Count 140 (140-400) K/mcL [facility] 04/04/18 05:11 Sodium 138 Potassium 3.4 L Chloride 109 H Carbon Dioxide 22 L BUN 8 Creatinine 0.68 L Glucose 102 Calcium 7.9 L - VTE Documentation of Mechanical Device: Intermittent pneumatic compression device Consult Discharge Plan - Plan Referrals: Zander Christina DO [Primary Care Provider] - 04/08/18 2:00 pm
[2018-04-04 17:50] LABS: Hematocrit 24.2 % (37.5-50.1); Hemoglobin 8.2 g/dL (12.9-16.9)
[2018-04-05 01:12] LABS: Hematocrit 23.3 % (37.5-50.1); Hemoglobin 7.7 g/dL (12.9-16.9); Mean Corpuscular Hemoglobin 29.6 pg (28.0-33.3); Mean Corpuscular Volume 89.6 fL (83.0-100.0); Mean Platelet Volume 9.6 fL (9.4-12.4); Platelet Count 143 K/mcL (140-400); Red Cell Distribution Width 17.5 % (11.5-14.5)
[2018-04-05 01:30] LABS: BUN/Creatinine Ratio 14 (6-26); Blood Urea Nitrogen 9 mg/dL (8-23); Calcium 8.2 mg/dL (8.6-10.3); Carbon Dioxide 24 mEq/L (23-29); Chloride 107 mEq/L (98-107); Glucose 98 mg/dL (70-105); Osmolality,Calculated 285 (280-300); Potassium 3.3 mEq/L (3.5-5.1); Sodium 138 mEq/L (136-145); eGFR For African Americans > 60 (> 60); eGFR For Non-African Americans > 60 (> 60)
[2018-04-05] MEDS: Ipratropium/Albuterol Neb 3 ML IH SCH ×4 (04:18→22:34)
[2018-04-05] MEDS: 0.9 % Sodium Chloride 1,000 ML IVC SCH ×4 (05:40→20:22)
[2018-04-05 08:35] LABS: Basophils % 0.3 %; Eosinophils # 0.1 K/mcL (0.0-0.6); Hematocrit 27.2 % (37.5-50.1); Hemoglobin 9.2 g/dL (12.9-16.9); Immature Granulocytes % 3.3 % (0-4); Lymphocytes # 0.3 K/mcL (0.6-4.6); Lymphocytes % 8.2 %; Mean Corpuscular HGB Conc 33.8 g/dL (31.6-35.5); Mean Corpuscular Hemoglobin 30.3 pg (28.0-33.3); Mean Corpuscular Volume 89.5 fL (83.0-100.0); Mean Platelet Volume 9.7 fL (9.4-12.4); Monocytes # 0.6 K/mcL (0.0-1.3); Monocytes % 15.8 %; Neutrophils # 2.5 K/mcL (1.6-8.9); Platelet Count 156 K/mcL (140-400); Red Blood Count 3.04 M/mcL (4.19-5.50); Red Cell Distribution Width 17.5 % (11.5-14.5); Segmented Neutrophils % 69.4 %
[2018-04-05 08:52] LABS: BUN/Creatinine Ratio 11 (6-26); Blood Urea Nitrogen 8 mg/dL (8-23); Calcium 8.7 mg/dL (8.6-10.3); Carbon Dioxide 21 mEq/L (23-29); Chloride 105 mEq/L (98-107); Glucose 99 mg/dL (70-105); Osmolality,Calculated 282 (280-300); Potassium 3.4 mEq/L (3.5-5.1); Sodium 137 mEq/L (136-145); eGFR For African Americans > 60 (> 60); eGFR For Non-African Americans > 60 (> 60)
[2018-04-05] MEDS: Levofloxacin 750 MG/150 ML 750 MG/150 ML BAG IVPB SCH (11:32)
[2018-04-05] MEDS: Sucralfate 1 GM TABLET PO SCH ×5 (11:33→20:35)
[2018-04-05] MEDS ORDERED: *HR* Midazolam HCl 2 MG/2 ML VIAL IVP ONE (12:02)
[2018-04-05] MEDS ORDERED: Tetracaine/Benzocaine/Butamben 200MG/SPRAY (100SPY/BOT) MM ONE (12:02)
[2018-04-05] MEDS ORDERED: *HR* FentaNYL (PF) 100 MCG/2 ML VIAL IVP ONE (12:02)
[2018-04-05] MEDS ORDERED: *HR* EPINEPHrine 1 MG/10 ML SYRINGE INTRATRACH PRN (12:02)
[2018-04-05] MEDS ORDERED: Albuterol 2.5 MG/3 ML NEBULIZER IH ONE (12:02)
[2018-04-05] MEDS ORDERED: Lidocaine Viscous Oral Soln 15 ML SOLUTION MM ONE (12:02)
--- NOTE | 2018-04-05 12:02 | Pre-Sedation Evaluation ---
Pre-sedation evaluation - Pre-sedation checklist Date of procedure: 04/05/18 Procedure: bronchoscopy Recent Vitals: Last Vital Signs Temp 98.1 F 04/05/18 11:16 Pulse 89 04/05/18 11:16 Resp 16 04/05/18 11:29 BP 131/82 04/05/18 11:16 Pulse Ox 96 04/05/18 11:29 H&P (including ROS) documented in medical record: Yes Previous reaction to sedatives/anesthetics: No Dietary Status: NPO after Midnight Dentition: No loose teeth or bridges Possible difficult airway: No ASA Classification *see protocol: CLASS III-Severe systemic disease Plan of Care: Pt appropriate candidate for procedure/moderate/conscious sedation , Risks/benefits of procedure/sedation discussed w/ patient/family
--- NOTE | 2018-04-05 14:17 | Internal Med Progress Note ---
Date of Encounter: 04/05/18 Time of Encounter: 09:30 - Assessment and plan (1) Lung cancer Current Visit: Yes Status: Chronic Assessment and plan: Recently completed chemo and radiation. Continue to follow with oncology after discharge. Patient has been seen by gynecology inpatient. I appreciate the recommendations. They agree with plan of care and no further recommendations. Patient bronchoscopy today. Patient had bronchial alveolar lavage. Right upper lobe pneumonia was noted as well as pseudomembranes were visualized in mid trachea, lower trachea, and rosenda. There were noted to be mucoid secretions throughout the tracheobronchial tree, mucopurulent, thick secretions found in rapid lobe, as well as erythema. Pulmonology recommends awaiting PAL, brushing, culture, and cytology results. Qualifiers: Laterality: right Lung location: upper lobe of lung Qualified Code(s): C34.11 - Malignant neoplasm of upper lobe, right bronchus or lung (2) Sepsis Current Visit: Yes Status: Resolved Assessment and plan: Resolved. Secondary to pneumonia. Patient has been afebrile for greater than 24 hours. No tachypnea. Tachycardia associated with fevers. Leukocytosis has resolved. No hypotension. Patient is pancytopenic WBC 3.1, hemoglobin 7.8, platelets have returned to normal today. Likely due to chronic disease and chemotherapy/radiation. Infectious disease has evaluated the patient. Suggested that it is hard for him to determine if this is an infectious process versus pneumonitis secondary to radiation. Blood cultures are negative, urine Legionella and strep pneumo antigen negative.. Continue to monitor labs and vitals. Continue IV Levaquin Qualifiers: Sepsis type: sepsis due to unspecified organism Qualified Code(s): A41.9 - Sepsis, unspecified organism (3) PNA (pneumonia) Current Visit: Yes Status: Suspected Assessment and plan: CXR note PARI pneumonia. Bronchoscopy notes right upper lobe pneumonia Respiratory PCR negative. Legionella and Strep pneumo antigens negative. Blood cultures no growth to date. Pt reports productive cough with clear, thick sputum, cultures negative. Pt is on room air, does not have home 02. Bronchoscopy this morning. Results above. Continue IV antibiotics, O2 as needed, bronchodilators, guaifenesin Treat fever with Tylenol Oncology, pulmonology, and ID are following. Qualifiers: Pneumonia type: due to unspecified organism Laterality: left Lung location: upper lobe of lung Qualified Code(s): J18.1 - Lobar pneumonia, unspecified organism (4) Anemia Current Visit: Yes Status: Acute Assessment and plan: Secondary to chemotherapy. Improving We will prepare to transfuse if hemoglobin drops below 7. No active bleeding. No pharmacological prophylactic DVT therapy due to anemia. Continue to monitor H&H. Qualifiers: Other causes of anemia: antineoplastic chemotherapy Qualified Code(s): D64.81 - Anemia due to antineoplastic chemotherapy; T45.1X5A - Adverse effect of antineoplastic and immunosuppressive drugs, initial encounter (5) DVT prophylaxis Current Visit: Yes Status: Acute Assessment and plan: SCDs ordered. Encourage ambulation. Chronic anemia. - Time Spent With Patient Total time spent is greater than 50% in coordination of care (as documented) at patient's floor/unit and/or counseling patient: less than 15 minutes - Subjective Interval history: Patient was seen and assessed this morning at 0930 AM. Patient feeling better and wants to go home. Patient denies any headache, blurred vision, neck pain, URI symptoms. He denies any chest pain or shortness of breath. Denies any abdominal pain, nausea, vomiting, diarrhea. - Constitutional Vitals: Temp Pulse Resp BP Pulse Ox 97.9 F 104 16 141/86 95 04/05/18 14:02 04/05/18 14:02 04/05/18 14:02 04/05/18 14:02 04/05/18 14:02 General appearance: Present: cooperative, A&O X 3, pleasant, no acute distress, answers questions appropriately - Head Head exam: Present: atraumatic, normal inspection, normocephalic - Eye Eye exam: Present: normal appearance, conjuntiva pink, sclera anicteric - Neck Neck exam general surgery: Present: supple, trachea midline. Absent: lymphadenopathy, tenderness - Respiratory Respiratory exam: Present: CTAB. Absent: accessory muscle use, chest wall tenderness, rales, respiratory distress, rhonchi, wheezes - Cardiovascular Cardiovascular exam: Present: RRR, +S1, +S2. Absent: diastolic murmur, gallop, rubs, systolic murmur - GI/Abdominal GI/Abdominal exam: Present: normal bowel sounds, soft. Absent: distended, hepatomegaly, tenderness - Extremities Exam Extremities exam: Present: normal capillary refill, normal inspection, warm. Absent: calf tenderness, cyanotic, pedal edema, tenderness - Neurological Exam Neurological exam: Present: alert, oriented X3, no focal deficits. Absent: facial droop, speech deficit - Skin Skin exam: Present: dry, intact, normal color, warm. Absent: rash Internal Medicine: Result - Labs CBC & Chem 7: 04/05/18 08:03 04/05/18 08:03 Labs: Short CBC 04/04/18 04/05/18 04/05/18 Range/Units 17:39 00:26 08:03 WBC 3.0 L 3.7 L (4.3-11.1) K/mcL Hgb 8.2 L 7.7 L 9.2 L D (12.9-16.9) g/dL Hct 24.2 L 23.3 L 27.2 L (37.5-50.1) % Plt Count 143 156 (140-400) K/mcL Neutrophils # 2.5 (1.6-8.9) K/mcL BMP 04/05/18 04/05/18 00:26 08:03 Sodium 138 137 Potassium 3.3 L 3.4 L Chloride 107 105 Carbon Dioxide 24 21 L BUN 9 8 Creatinine 0.66 L 0.70 Glucose 98 99 Calcium 8.2 L 8.7 - VTE Documentation of Mechanical Device: Intermittent pneumatic compression device Consult Discharge Plan - Plan Referrals: Zander Christina DO [Primary Care Provider] - 04/08/18 2:00 pm
[2018-04-05] MEDS: Acyclovir 800 MG in D5% in Water 250 ML IVPB SCH (15:55)
--- NOTE | 2018-04-05 16:41 | Infectious Disease Progress No ---
Date of Encounter: 04/05/18 Time of Encounter: 16:39 - Assessment and Plan (1) Sepsis Current Visit: Yes Status: Resolved resolved Secondary to pneumonia versus other Patient has been on vancomycin and Zosyn for 5 days and continues to have fevers. Patient does not appear toxic Qualifiers: Sepsis type: sepsis due to unspecified organism Qualified Code(s): A41.9 - Sepsis, unspecified organism (2) HCAP (healthcare-associated pneumonia) Current Visit: Yes Status: Acute causative organism not clear; but high index of suspicion for HSV pneumonitis patient had respiratory infectious panel done which was negative, urine legionella and pneumococcal antigen done which were negative Patient had blood cultures which were negative It is really hard to distinguish if this is an infectious pneumonia versus pneumonitis due to radiation. Patient has been on vancomycin and Zosyn since March 30 Recommend pulmonary consultation Repeat CT chest started on levofloxacin While we wait for HSV PCR to come back on the BAL we will start acyclovir empirically (3) Persistent fever Current Visit: Yes Status: Acute I am not sure was causing the persistent fever. Review of system is really only positive for a cough. No sinus pressure no toothache no backache no abdominal pain no urinary symptoms. I am not sure if it is the pneumonia that is causing it or if there is an occult infection that we are missing. I will check LFTs, lipase, amylase, repeat blood cultures 2 and procalcitonin levels. I am repeating CT chest maybe will do CT abdomen and pelvis at the same time if patient starts having fevers again. in the mean time, we might just continue to observe. (4) Lung cancer Current Visit: Yes Status: Chronic Diagnosed in February 2018 Received 6 weeks worth of chemotherapy and today sessions of radiation. Has been out of chemotherapy for 2 weeks Qualifiers: Laterality: right Lung location: upper lobe of lung Qualified Code(s): C34.11 - Malignant neoplasm of upper lobe, right bronchus or lung - Subjective Interval history: Patient seen and examined. Denies any headache. No blurred vision. Denies any chest pain. Continues to have cough but slightly improved. Having some diarrhea but only one soft bowel movement today. No urinary symptoms. Patient doing very well clinically. Just came back from bronchoscopy. I did discuss with Dr. ricks and he is concerned that the patient has HSV pneumonitis based on the bronchoscopy morphology Infect Dis PN-Objective Data - Labs CBC & Chem 7: 06/22/18 08:03 04/05/18 08:03 Labs: Laboratory Results - last 24 hr 04/04/18 04/04/18 04/05/18 17:39 17:39 00:26 WBC 3.0 L RBC 2.60 L Hgb 8.2 L 7.7 L Hct 24.2 L 23.3 L MCV 89.6 MCH 29.6 MCHC 33.0 RDW 17.5 H Plt Count 143 MPV 9.6 Immature Gran % Seg Neutrophils % Lymphocytes % Monocytes % Eosinophils % Basophils % Neutrophils # Lymphocytes # Monocytes # Eosinophils # Basophils # Sodium Potassium Chloride Carbon Dioxide BUN Creatinine Est GFR ( Amer) Est GFR (Non-Af Amer) BUN/Creatinine Ratio Glucose Calculated Osmolality Calcium Blood Type A POSITIVE Antibody Screen NEGATIVE 04/05/18 04/05/18 04/05/18 00:26 08:03 08:03 WBC 3.7 L RBC 3.04 L Hgb 9.2 L D Hct 27.2 L MCV 89.5 MCH 30.3 MCHC 33.8 RDW 17.5 H Plt Count 156 MPV 9.7 Immature Gran % 3.3 Seg Neutrophils % 69.4 Lymphocytes % 8.2 Monocytes % 15.8 Eosinophils % 3.0 Basophils % 0.3 Neutrophils # 2.5 Lymphocytes # 0.3 L Monocytes # 0.6 Eosinophils # 0.1 Basophils # 0.0 Sodium 138 137 Potassium 3.3 L 3.4 L Chloride 107 105 Carbon Dioxide 24 21 L BUN 9 8 Creatinine 0.66 L 0.70 Est GFR ( Amer) > 60 > 60 Est GFR (Non-Af Amer) > 60 > 60 BUN/Creatinine Ratio 14 11 Glucose 98 99 Calculated Osmolality 285 282 Calcium 8.2 L 8.7 Blood Type Antibody Screen Cultures: Cultures 04/03/18 16:48 Sputum Culture - Preliminary Sputum 03/30/18 20:50 Legionella Antigen - Final Urine,Clean Catch Streptococcus pneumoniae Antigen (M - Final Serology 03/31/18 Range/Units 11:35 Chlamy pneumoniae PCR Not Detected (Not Detect) Adenovirus (PCR) Not Detected (Not Detect) B. pertussis DNA (PCR) Not Detected (Not Detect) B.parapertussis DNA PCR Not Detected (Not Detect) Coronavirus OC43 (PCR) Not Detected (Not Detect) Coronavirus HKU1 (PCR) Not Detected (Not Detect) Coronavirus 229E (PCR) Not Detected (Not Detect) Coronavirus NL63 (PCR) Not Detected (Not Detect) Human Metapneumovir PCR Not Detected (Not Detect) Influenza A (H1) PCR Not Detected (Not Detect) Influ A (H1N1/09) PCR Not Detected (Not Detect) Influenza A (H3) PCR Not Detected (Not Detect) Influenza A Untype (PCR) Not Detected (Not Detect) Influenza Type B (PCR) Not Detected (Not Detect) M.pneumoniae DNA (PCR) Not Detected (Not Detect) Parainfluenza 1 (PCR) Not Detected (Not Detect) Parainfluenza 2 (PCR) Not Detected (Not Detect) Parainfluenza 3 (PCR) Not Detected (Not Detect) Parainfluenza 4 (PCR) Not Detected (Not Detect) RSV (PCR) Not Detected (Not Detect) Entero/Rhino (PCR) Not Detected (Not Detect) Exam - Constitutional Vitals: Temp Pulse Resp BP Pulse Ox 98.1 F 100 16 121/78 94 04/05/18 14:45 04/05/18 14:45 04/05/18 15:48 04/05/18 14:45 04/05/18 15:48 General appearance: no acute distress, no febrile - Head Head exam: Present: atraumatic - ENT ENT exam: Present: mucous membranes dry - Neck Neck exam: Present: full ROM, normal inspection - Respiratory Respiratory exam: Present: rhonchi Additional comments: Right chest. And some expiratory wheezing - Cardiovascular Cardiovascular exam: Present: RRR, +S1, +S2 - GI/Abdominal GI/Abdominal exam: Present: normal bowel sounds, soft. Absent: tenderness - VTE Documentation of Mechanical Device: Intermittent pneumatic compression device Consult Discharge Plan - Plan Referrals: Zander Christina DO [Primary Care Provider] - 04/08/18 2:00 pm
[2018-04-05 18:23] LABS: Appearance of Body Fluid Slightly Hazy (Clear); Volume of Body Fluid 15 mL
--- NOTE | 2018-04-05 19:26 | Oncology Inp Progress Note ---
<Deanne Mata Jac - Last Filed: 04/06/18 05:03> Date of Encounter: 04/05/18 Time of Encounter: 18:00 (1) PNA (pneumonia) Current Visit: Yes Status: Suspected Assessment and plan: Patient with right lung mass, rt hilar adenopathy with mediastinal lymphadenopathy, stage III with possibly another primary in the left upper lung which is not biopsied at this time, which is to be followed up subsequently. Patient started concurrent chemoradiation therapy, carbotaxol 03/01 completed 03/19, last dose of carbotaxol Continue to follow up with Dr. Ohara on an outpatient basis Qualifiers: Pneumonia type: due to unspecified organism Laterality: left Lung location: upper lobe of lung Qualified Code(s): J18.1 - Lobar pneumonia, unspecified organism (2) HCAP (healthcare-associated pneumonia) Current Visit: Yes Status: Acute Assessment and plan: ID consult reviewed Causative organism not clear but now has high index of suspicion for HSV pneumonitis based on the bronchoscopy morphology He continued to have fevers on vancomycin/levaquin Currently on Levaquin-ID adding acyclovir empirically S/P bronchoscopy-there were notable, thick, mucopurulent secretions and erythema in the right upper airway- cultures pending. He has been afebrile since 04/03 1610 Timeline does not appear consistent with radiation induced pneumonitis and more consistent with infectious etiology, appreciate continued recommendations per ID. His fever is now resolving, patient reports his symptoms are slowly improving, hopeful discharge in the next 24-48 hours if he continues down this path Oncology: Subj Interval history: Mr. Wilburn is resting in bed. His is at bedside. He is feeling better than on admission although not yet back to baseline. He had his bronchoscopy just recently today which he tolerated well. His appetite is good. He is slowly increasing his activity - Constitutional Vitals: Vital Signs Temp Pulse Resp BP Pulse Ox 04/05/18 18:48 98.3 F 94 14 121/45 97 04/05/18 15:48 16 94 04/05/18 14:45 98.1 F 100 16 121/78 97 04/05/18 14:02 97.9 F 104 16 141/86 95 04/05/18 13:40 98.4 F 93 16 147/87 98 04/05/18 13:35 98.4 F 89 16 136/84 98 04/05/18 13:30 98.4 F 91 16 132/84 99 04/05/18 13:12 98.4 F 92 16 126/76 98 04/05/18 12:57 98.4 F 97 20 144/91 96 04/05/18 11:29 16 96 04/05/18 11:16 98.1 F 89 16 131/82 96 04/05/18 06:51 98.3 F 92 16 111/70 95 04/05/18 02:33 98.8 F 97 16 127/78 93 04/04/18 22:47 98.3 F 92 14 121/77 93 04/04/18 21:59 16 96 Intake and Output 04/05/18 04/05/18 04/05/18 07:59 15:59 23:59 Intake Total 1000 / 1000 150 / 150 490 / 490 Output Total 900 / 900 300 / 300 400 / 400 Balance 100 / 100 -150 / -150 90 / 90 Intake: IV Fluids 1000 / 1000 150 / 150 250 / 250 0.9 % Sodium Chloride 1,000 ML 1000 / 1000 @ 75 mls/hr IVC .[id number] [facility] Rx #:[id number] Levaquin Premix 750mg/150 mL 150 / 150 750 mg In 150 ml @ 100 mls/hr IVPB DAILY [facility] Rx#:[id number] Oral 240 / 240 Output: Urine 900 / 900 300 / 300 400 / 400 Other: Meal Dinner Percent of Meal Consumed 100% Weight 83 kg Patient Weight 04/05/18 23:59 Weight 83 kg General appearance: cooperative, no acute distress, no febrile - Head Head exam: Present: atraumatic - ENT ENT exam: Present: mucous membranes moist - Respiratory Respiratory exam: Present: CTAB. Absent: respiratory distress - Cardiovascular Cardiovascular exam: Present: RRR, +S1, +S2 - GI/Abdominal GI/Abdominal exam: Present: normal bowel sounds, soft. Absent: guarding, rebound, tenderness - Extremities Exam Extremities exam: Present: normal inspection. Absent: calf tenderness - Neurological Exam Neurological exam: Present: alert, oriented X3, no focal deficits, strengths equal and symetr throughout - Psychiatric Psychiatric exam: Present: normal affect, normal mood - Skin Skin exam: Present: dry, intact, normal color, warm Oncology: Obj Data - Labs CBC & Chem 7: 04/05/18 08:03 04/05/18 08:03 Consult Discharge Plan - Plan Referrals: Zander Christina DO [Primary Care Provider] - 04/08/18 2:00 pm <Brett Castillo - Last Filed: 04/06/18 14:32> Date of Encounter: 04/06/18 - Constitutional Vitals: Vital Signs Temp Pulse Resp BP Pulse Ox 04/06/18 11:48 98.4 F 97 18 121/79 93 04/06/18 10:07 18 95 04/06/18 07:27 98.3 F 93 18 123/79 95 04/06/18 04:02 16 95 04/06/18 03:30 98.4 F 90 16 121/76 94 04/05/18 22:34 16 96 04/05/18 22:22 99.0 F 89 14 127/75 94 04/05/18 20:23 97 04/05/18 18:48 98.3 F 94 14 121/45 97 04/05/18 15:48 16 94 04/05/18 14:45 98.1 F 100 16 121/78 97 Intake and Output 04/06/18 04/06/18 04/06/18 00:59 08:59 16:59 Intake Total 1706 / 1706 266 / 266 1266 / 1266 Output Total 700 / 700 600 / 600 600 / 600 Balance 1006 / 1006 -334 / -334 666 / 666 Intake: IV Fluids 1466 / 1466 266 / 266 1266 / 1266 0.9 % Sodium Chloride 1,000 ML 950 / 950 1000 / 1000 @ 75 mls/hr IVC .[id number] [facility] Rx #:[id number] Zovirax 800 MG In Dextrose 5% 266 / 266 266 / 266 266 / 266 250 ML @ 250 mls/hr IVPB Q8HR [facility] Rx#:[id number] Oral 240 / 240 Output: Urine 700 / 700 600 / 600 600 / 600 Other: Meal Dinner Percent of Meal Consumed 100% Stool Size Moderate Stool Consistency liquid Weight 82.8 kg Patient Weight 04/07/18 00:59 Weight 82.8 kg Oncology: Obj Data - Labs CBC & Chem 7: 04/06/18 08:59 04/06/18 08:59 Labs: Laboratory Results - last 24 hr 04/05/18 04/06/18 04/06/18 13:46 08:59 08:59 WBC 2.5 L RBC 2.65 L Hgb 8.0 L Hct 23.7 L MCV 89.4 MCH 30.2 MCHC 33.8 RDW 17.5 H Plt Count 126 L MPV 9.0 L Immature Gran % 3.7 Seg Neutrophils % 65.0 Lymphocytes % 10.6 Monocytes % 17.5 Eosinophils % 2.8 Basophils % 0.4 Neutrophils # 1.6 Lymphocytes # 0.3 L Monocytes # 0.4 Eosinophils # 0.1 Basophils # 0.0 Sodium 138 Potassium 3.3 L Chloride 108 H Carbon Dioxide 22 L BUN 8 Creatinine 0.62 L Est GFR ( Amer) > 60 Est GFR (Non-Af Amer) > 60 BUN/Creatinine Ratio 13 Glucose 106 H Calculated Osmolality 285 Calcium 8.3 L Fluid Source right upper lobe chika Fluid Volume 15 Fluid Appearance Slightly Hazy A Fluid RBC TNP Fld Tot Nucleated Cell TNP Fluid Seg Neutrophil % 76.0 Fld Band Neutrophil % Test Not Performed Fluid Lymphocytes % 7.0 Fluid Monocytes % Test Not Performed Fluid Eosinophils % 1.0 Fluid Basophils % Test Not Performed Fluid Other Cells % 16.0 - Attending Attestation I examined this patient and my medical decision-making was reviewed with the Advanced Practice Nurse. I agree with the documented findings, disposition and treatment plan as described except to the extent set forth below. Mr. Wilburn recently completed concurrent chemoradiation and has had persistent fever. Clinically, he is improving and findings may be c/w viral process. May also be radiation-associated inflammation. Clinically improving. Afebrile for 36 hours. Continue supportive care. No need for transfusion. Expect he will improve quickly next few days.
[2018-04-06] MEDS: Acyclovir 800 MG in D5% in Water 250 ML IVPB SCH ×3 (00:22→16:54)
[2018-04-06] MEDS: 0.9 % Sodium Chloride 1,000 ML IVC SCH ×3 (01:40→12:14)
[2018-04-06] MEDS: Ipratropium/Albuterol Neb 3 ML IH SCH ×4 (04:02→22:35)
[2018-04-06] MEDS: Levofloxacin 750 MG/150 ML 750 MG/150 ML BAG IVPB SCH (07:59)
[2018-04-06] MEDS: Sucralfate 1 GM TABLET PO SCH ×4 (08:00→20:48)
--- NOTE | 2018-04-06 08:39 | Pulmonology Progress Note ---
Date of Encounter: 04/06/18 Time of Encounter: 08:39 Assessment and Plan (1) PNA (pneumonia) Current Visit: Yes Status: Suspected Patient has presented with concern for infectious pneumonia vs Radiation Pneumonitis.HE is currently recieving ABx per ID recommendations. He is s/p Bronchoscopy with findings possibly c/w with HSV. -Agree with LEvaquin and Empiric HSV treatment with Acyclovir. -Will f/u on Bronch results but if Patient discharged prior to final results should go out on PO ABx including Acyclovir with f/u in Pulm clinic Sunday or Sun of next week. -Will make final decision on steroids or possible radiation pneumonitis after results of infectious testing is known. Discuss with the patient he is amenable to this plan. I also ran the recommendations by the primary nurse practitioner Pia Villarreal Pulmonary will continue to follow Qualifiers: Pneumonia type: due to unspecified organism Laterality: left Lung location: upper lobe of lung Qualified Code(s): J18.1 - Lobar pneumonia, unspecified organism (2) Radiation pneumonitis Current Visit: Yes Status: Suspected (3) Lung cancer Current Visit: Yes Status: Chronic Qualifiers: Laterality: right Lung location: upper lobe of lung Qualified Code(s): C34.11 - Malignant neoplasm of upper lobe, right bronchus or lung Subjective Principal diagnosis: Pneumonia Interval history: Status post bronchoscopy without untoward effect. He had a little bit of blood mixed in with sputum after the procedure but that seems to be getting better. He is not requiring any oxygen support at this time to his breathing is a bit labored but he has not been in any distress over the last 24 hours. Remains afebrile Objective PUL Vital signs: Last Vital Signs Temp 98.3 F 04/06/18 07:27 Pulse 93 04/06/18 07:27 Resp 18 04/06/18 07:27 BP 123/79 04/06/18 07:27 Pulse Ox 95 04/06/18 07:27 General appearance: no acute distress Eyes: nonicteric ENT: oropharynx moist Neck: supple Auscultation: left: rhonchi, right: wheezes Cardiovascular: regular rate and rhythm Extremities: no cyanosis, no edema normal mental status, non-focal exam Results - Laboratory Findings CBC and BMP: 04/06/18 08:59 04/06/18 08:59 Abnormal lab findings: Abnormal lab results WBC 3.7 K/mcL (4.3-11.1) L 04/05/18 08:03 RBC 3.04 M/mcL (4.19-5.50) L 04/05/18 08:03 Hgb 9.2 g/dL (12.9-16.9) L D 04/05/18 08:03 Hct 27.2 % (37.5-50.1) L 04/05/18 08:03 RDW 17.5 % (11.5-14.5) H 04/05/18 08:03 Band Neutrophils % 22.0 % (0-4) H 03/31/18 04:39 Myelocytes % 2.0 % (0) H 03/31/18 04:39 Lymphocytes # 0.3 K/mcL (0.6-4.6) L 04/05/18 08:03 Toxic Granulation Present (Not Present) A 03/31/18 04:39 Platelet Estimate Slight Decrease (Normal) L 03/31/18 04:39 Potassium 3.4 mEq/L (3.5-5.1) L 04/05/18 08:03 Carbon Dioxide 21 mEq/L (23-29) L 04/05/18 08:03 Urine Clarity Cloudy (Clear) A 03/30/18 16:24 Ur Specific Rector 1.026 (1.010-1.025) H 03/30/18 16:24 Urine Protein 30 mg/dL (Neg-Trace) H 03/30/18 16:24 Urine Ketones 15 mg/dL (Negative) H 03/30/18 16:24 Urine Microscopic RBC 5-15 per hpf (0-3) H 03/30/18 16:24 Ur Squamous Epith Cells Moderate per lpf (None-Few) H 03/30/18 16:24 Fluid Appearance Slightly Hazy (Clear) A 04/05/18 13:46 Vancomycin Trough 12 mcg/mL (5-10) H 04/03/18 21:58 - Microbiology Findings Microbiology Findings: Microbiology, Last 48 Hours 04/03/18 16:48 Sputum Culture - Final Sputum 04/05/18 13:46 Gram Stain - Final Right Upper Lobe Lung - Clinical Findings Intake & Output: Intake & Output 06/22/18 06/23/18 06/23/18 23:59 07:59 15:59 Intake Total 1706 / 1706 266 / 266 Output Total 700 / 700 600 / 600 Balance 1006 / 1006 -334 / -334 Weight 82.8 kg - VTE Documentation of Mechanical Device: Intermittent pneumatic compression device Consult Discharge Plan - Plan Referrals: Zander Christina DO [Primary Care Provider] - 04/08/18 2:00 pm
[2018-04-06 09:09] LABS: Basophils % 0.4 %; Eosinophils # 0.1 K/mcL (0.0-0.6); Eosinophils % 2.8 %; Hematocrit 23.7 % (37.5-50.1); Immature Granulocytes % 3.7 % (0-4); Lymphocytes # 0.3 K/mcL (0.6-4.6); Lymphocytes % 10.6 %; Mean Corpuscular HGB Conc 33.8 g/dL (31.6-35.5); Mean Corpuscular Hemoglobin 30.2 pg (28.0-33.3); Mean Corpuscular Volume 89.4 fL (83.0-100.0); Monocytes # 0.4 K/mcL (0.0-1.3); Monocytes % 17.5 %; Neutrophils # 1.6 K/mcL (1.6-8.9); Platelet Count 126 K/mcL (140-400); Red Blood Count 2.65 M/mcL (4.19-5.50); Red Cell Distribution Width 17.5 % (11.5-14.5)
[2018-04-06 09:33] LABS: BUN/Creatinine Ratio 13 (6-26); Blood Urea Nitrogen 8 mg/dL (8-23); Calcium 8.3 mg/dL (8.6-10.3); Carbon Dioxide 22 mEq/L (23-29); Chloride 108 mEq/L (98-107); Glucose 106 mg/dL (70-105); Osmolality,Calculated 285 (280-300); Potassium 3.3 mEq/L (3.5-5.1); Sodium 138 mEq/L (136-145); eGFR For African Americans > 60 (> 60); eGFR For Non-African Americans > 60 (> 60)
--- NOTE | 2018-04-06 15:36 | Discharge Summary ---
- NOTES TO OUTPATIENT PROVIDER Notes to Outpatient Provider: Patient was admitted for fever, coughing. Patient admitted and treated for pneumonia. Patient was treated with vancomycin and Zosyn due to suspected HCAP with recent hospitalizations. Patient was not improving, leukocyte ptosis was not improving and he was having intermittent fevers. Infectious disease was brought on board and change antibiotics to Levaquin only. Pulmonology was also consulted and bronchoscopy was done, suspect infectious pneumonia versus radiation pneumonitis. Bronchoscopy shows findings possibly consistent with HSV pneumonia. Patient is going to be discharged with Levaquin and empiric HSV treatment with acyclovir with bronchial results pending. Pulmonology will follow with patient in the office early in the week. Patient is stable, he is not requiring any supplemental oxygen, he is in no respiratory distress, his labs are stable. He has been afebrile. Her command close follow-up with pulmonology, infectious disease, primary care, oncology after discharge. Orders not resulted at time of discharge: Pending orders 04/05/18 13:46 AFB Culture, Respiratory [TB] Routine AFB Smear [TB] Routine Culture,Respiratory [RM] Routine Culture,Respiratory [RM] Routine Fungal Culture [MYC] Routine Fungal Culture [MYC] Routine Herpes Simplex PCR Body Fl Routine Resp.Virus Panel,Body Fl Routine Cytology [PTH] Routine 04/05/18 13:56 Cytology [PTH] Routine Date of Encounter: 04/06/18 Time of Encounter: 09:05 - Discharge Diagnosis (1) Lung cancer Priority: Secondary Status: Chronic Assessment and Plan: Follow with oncology outpatient. Qualifiers: Laterality: right Lung location: upper lobe of lung Qualified Code(s): C34.11 - Malignant neoplasm of upper lobe, right bronchus or lung (2) Sepsis Priority: Secondary Status: Resolved Assessment and Plan: Resolved. Qualifiers: Sepsis type: sepsis due to unspecified organism Qualified Code(s): A41.9 - Sepsis, unspecified organism (3) PNA (pneumonia) Priority: Secondary Status: Suspected Assessment and Plan: CXR note PARI pneumonia. Bronchoscopy notes right upper lobe pneumonia Respiratory PCR negative. Legionella and Strep pneumo antigens negative. Blood cultures no growth to date. Pt reports productive cough with clear, thick sputum, cultures negative. Pt is on room air, does not have home 02. Bronchoscopy 04/05. Suspect HSV pneumonia vs radiation pneumonitis. Pt will continue Levaquin and Acyclovir on discharge. Follow with ID, Oncology, and Pulmonology Pulmonology in the office early in the week. Qualifiers: Pneumonia type: due to unspecified organism Laterality: left Lung location: upper lobe of lung Qualified Code(s): J18.1 - Lobar pneumonia, unspecified organism (4) Anemia Priority: Secondary Status: Acute Assessment and Plan: Secondary to chemotherapy. Hgb is stable and pt has no signs of bleeding. No pharmacological prophylactic DVT therapy due to anemia. Continue to monitor H&H. Qualifiers: Other causes of anemia: antineoplastic chemotherapy Qualified Code(s): D64.81 - Anemia due to antineoplastic chemotherapy; T45.1X5A - Adverse effect of antineoplastic and immunosuppressive drugs, initial encounter (5) DVT prophylaxis Priority: Secondary Status: Acute Assessment and Plan: SCDs ordered. Encourage ambulation. Chronic anemia. Hospital course: Mr. 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 Patient admitted for shortness of breath diagnosed with HCAP. Patient did not seem to be improving with initial antibiotics of Zosyn and vancomycin. He continued to have leukocytosis and intermittent fevers. Infectious disease and pulmonology were brown board. Antibiotic was changed to Levaquin by infectious disease and patient began to show improvement. Pulmonology did a bronchoscopy on 04/05. Suspect radiation pneumonitis versus HSV pneumonia. Leukocytosis and fevers have resolved. His labs and are stable and within normal limits. He will follow-up with primary care, pulmonology, and infectious disease. Sent home with a prescription for Zithromax 750 mg by mouth daily for pneumonia, as well as acyclovir 800 mg 3 times daily for the suspected HSV pneumonia. Patient has improved clinically and is no longer requiring supplemental oxygen. His physical exam is unremarkable. He is stable and appropriate for discharge. Discharge discussed with: patient - Time Spent with Patient Total time spent providing and/or coordinating discharge services: Less than 30 minutes - Discharge Medications Prescriptions: Acyclovir [Zovirax] 800 mg PO TID #21 tablet Levofloxacin [Levaquin] 750 mg PO DAILY #7 tablet Home Medications: Albuterol Sulfate [Albuterol Inhaler] 2 puff IH Q4H PRN 01/15/18 [History] Multivit-Minerals/Folic Acid [Adult One Daily Gummies] 400 mcg PO DAILY [History] Ondansetron [Zofran] 8 mg PO Q8HR PRN #60 tablet 02/07/18 [Rx] Prochlorperazine Maleate [Compazine] 10 mg PO Q6HR PRN #90 tablet 02/07/18 [Rx] GuaiFENesin/Codeine [ROBITUSSIN w/CODEINE] 10 ml PO Q6HR PRN 20 Days #800 ml 07/02 [Rx] Albuterol Neb [AccuNeb] 0.63 mg IH PRN PRN #30 inhsol 02/25/18 [Rx] Magic Mouthwash [Magic Mouthwash BLM] 10 ml PO QID PRN #400 ml 02/27/18 [Rx] Omeprazole [PriLOSEC] 20 mg PO DAILY 03/04/18 [History] Sucralfate [Carafate] 1 gm PO QIDAC #120 tablet 03/04/18 [Rx] Acyclovir [Zovirax] 800 mg PO TID #21 tablet 04/06/18 [Rx] Levofloxacin [Levaquin] 750 mg PO DAILY #7 tablet 04/06/18 [Rx] Allergies/Adverse Reactions: 3 Allergy/AdvReac Type Severity Reaction Status Date / Time No Known Allergies Allergy Verified 03/19/18 08:30 Date of admission: 03/30/18 19:03 Primary care physician: Corey Chowdhury Consults: 04/02/18 08:55 Consult to Nurse Navigator [CONS] Routine Comment: PNEUMONIA 04/02/18 10:56 Consult to Oncology [CONS] Routine Consulting Provider: Oncology [facility] [place] Reason for Consult: Consult Time Notified: 10:56 Call Completed: Yes 04/03/18 09:10 Consult to Infectious Diseases [CONS] Routine Consulting Provider: Infectious Disease [facility] Reason for Consult: Spoke with Dr. Rose on phone last pm, forgot to enter consult. Pt is being treated for pneumonia with Zosyn and Vanco, still having intermittent fevers. Pt is also being treated for lung ca with chemo and radiation. Recommendations, please. Time Notified: 17:00 Call Completed: Yes 04/04/18 07:34 Consult to Pulmonology [CONS] Routine Consulting Provider: Pulm [facility] [place] Reason for Consult: Current lung ca with metastatic lymphadenopathy, current pneumonia. Treated with vanco and Zosyn for 5 days and is still febrile. ID consulted and has stopped abx and has started Levaquin. Recommendations, please. Time Notified: 07:38 Call Completed: Yes Discharging clinician: Pia Villarreal Anticipated date of discharge: 04/06/18 (t) - Constitutional Vitals: Temp Pulse Resp BP Pulse Ox 98.4 F 97 18 121/79 93 04/06/18 11:48 04/06/18 11:48 04/06/18 11:48 04/06/18 11:48 04/06/18 11:48 General appearance: Present: cooperative, A&O X 3, pleasant, no acute distress, answers questions appropriately - Head Head exam: Present: atraumatic, normal inspection, normocephalic - Eye Eye exam: Present: normal appearance, conjuntiva pink, sclera anicteric - Neck Neck exam general surgery: Present: supple, trachea midline. Absent: lymphadenopathy, tenderness - Respiratory Respiratory exam: Present: decreased breath sounds, CTAB. Absent: accessory muscle use, chest wall tenderness, rales, rhonchi, wheezes - Cardiovascular Cardiovascular exam: Present: RRR, +S1, +S2. Absent: diastolic murmur, gallop, rubs, systolic murmur - GI/Abdominal GI/Abdominal exam: Present: normal bowel sounds, soft. Absent: distended, hepatomegaly, tenderness - Extremities Exam Extremities exam: Present: normal capillary refill, normal inspection, warm, radial pulses palpable and symmetrical. Absent: calf tenderness, cyanotic, pedal edema, tenderness - Neurological Exam Neurological exam: Present: alert, oriented X3, no focal deficits. Absent: motor sensory deficit, facial droop, speech deficit - Skin Skin exam: Present: dry, intact, normal color, warm. Absent: rash - Patient Status Disposition: Home, Self-Care Condition: Good Functional capacity at discharge: independent ambulation Overall status at discharge: patient is progressing back to baseline - Discharge Instructions Follow Up With: Zander Christina DO [Primary Care Provider] - 04/08/18 2:00 pm Additional Instructions: Please follow up with pulmonology, primary care, infectious disease as scheduled. Please return to the emergency department as needed for any other problems or concerns, or if your symptoms return or worsen. Resume your normal medications. Your new medications have been called to your pharmacy. Return to your normal diet and activities as tolerated. - Diet and Activity Activity: increase activity as tolerated Diet: advance to your usual diet - VTE Documentation of Mechanical Device: Intermittent pneumatic compression device
[2018-04-06] MEDS ORDERED: GuaiFENesin/Codeine Oral Soln 5 ML UDC PO PRN (18:54)
[2018-04-07] MEDS: Acyclovir 800 MG in D5% in Water 250 ML IVPB SCH ×2 (00:40→10:24)
[2018-04-07] MEDS: 0.9 % Sodium Chloride 1,000 ML IVC SCH ×2 (00:41→00:52)
[2018-04-07] MEDS: Ipratropium/Albuterol Neb 3 ML IH SCH ×2 (03:19→10:51)
[2018-04-07 07:28] VITALS: BP 135/87
[2018-04-07] MEDS: Levofloxacin 750 MG/150 ML 750 MG/150 ML BAG IVPB SCH (08:43)
[2018-04-07] MEDS: Sucralfate 1 GM TABLET PO SCH (08:44)
--- NOTE | 2018-04-07 10:53 | Internal Med Progress Note ---
Date of Encounter: 04/07/18 Time of Encounter: 10:42 - Assessment and plan (1) Lung cancer Current Visit: Yes Status: Chronic Assessment and plan: Follow with oncology outpatient. Pt states that he has an appointment with oncology on Sunday. Qualifiers: Laterality: right Lung location: upper lobe of lung Qualified Code(s): C34.11 - Malignant neoplasm of upper lobe, right bronchus or lung (2) Sepsis Current Visit: Yes Status: Resolved Assessment and plan: Resolved. Qualifiers: Sepsis type: sepsis due to unspecified organism Qualified Code(s): A41.9 - Sepsis, unspecified organism (3) PNA (pneumonia) Current Visit: Yes Status: Suspected Assessment and plan: CXR note PARI pneumonia. Bronchoscopy notes right upper lobe pneumonia Respiratory PCR negative. Legionella and Strep pneumo antigens negative. Blood cultures no growth to date. Pt reports productive cough with clear, thick sputum, cultures negative, improved today. Pt has been on room air and is in no distress. Bronchoscopy 04/05. Suspect HSV pneumonia vs radiation pneumonitis. Pt will continue Levaquin and Acyclovir on discharge. Follow with ID, Oncology, and Pulmonology Pulmonology in the office early in the week. Qualifiers: Pneumonia type: due to unspecified organism Laterality: left Lung location: upper lobe of lung Qualified Code(s): J18.1 - Lobar pneumonia, unspecified organism (4) Anemia Current Visit: Yes Status: Acute Assessment and plan: Secondary to chemotherapy. Hgb is stable and pt has no signs of bleeding. No pharmacological prophylactic DVT therapy due to anemia. Pt has appointment with oncology in 2 days. Qualifiers: Other causes of anemia: antineoplastic chemotherapy Qualified Code(s): D64.81 - Anemia due to antineoplastic chemotherapy; T45.1X5A - Adverse effect of antineoplastic and immunosuppressive drugs, initial encounter (5) DVT prophylaxis Current Visit: Yes Status: Acute Assessment and plan: SCDs ordered. Encourage ambulation. Pt has been ambulatory in the room. - Time Spent With Patient Total time spent is greater than 50% in coordination of care (as documented) at patient's floor/unit and/or counseling patient: less than 15 minutes - Subjective Interval history: Patient was seen and assessed this morning at 1042 AM. Patient feels well and is ready to go home. Patient denies any headache, blurred vision, neck pain, URI symptoms. He denies any chest pain or shortness of breath. Denies any abdominal pain, nausea, vomiting, diarrhea. Reports that he has only had a small BM, but declines medication and states that he will take stool softener at home. - Constitutional Vitals: Temp Pulse Resp BP Pulse Ox 98.6 F 84 18 135/87 96 04/07/18 07:28 04/07/18 07:28 04/07/18 07:28 04/07/18 07:28 04/07/18 07:28 General appearance: Present: cooperative, A&O X 3, pleasant, no acute distress, answers questions appropriately - Head Head exam: Present: atraumatic, normal inspection, normocephalic - Eye Eye exam: Present: normal appearance, conjuntiva pink, sclera anicteric - Neck Neck exam general surgery: Present: supple, trachea midline. Absent: lymphadenopathy, tenderness - Respiratory Respiratory exam: Present: decreased breath sounds, CTAB. Absent: accessory muscle use, chest wall tenderness, rales, rhonchi, wheezes - Cardiovascular Cardiovascular exam: Present: RRR, +S1, +S2. Absent: diastolic murmur, gallop, rubs, systolic murmur - GI/Abdominal GI/Abdominal exam: Present: normal bowel sounds, soft. Absent: distended, hepatomegaly, tenderness - Extremities Exam Extremities exam: Present: normal capillary refill, normal inspection, warm, radial pulses palpable and symmetrical. Absent: calf tenderness, cyanotic, pedal edema, tenderness - Neurological Exam Neurological exam: Present: alert, oriented X3, no focal deficits. Absent: facial droop, speech deficit - Skin Skin exam: Present: dry, intact, normal color, warm. Absent: rash Internal Medicine: Result - Labs CBC & Chem 7: 04/06/18 08:59 04/06/18 08:59 - VTE Documentation of Mechanical Device: Intermittent pneumatic compression device Consult Discharge Plan - Plan Instructions: Acyclovir (By mouth), Levofloxacin (By mouth), Anemia (DC), Pneumonia (DC) Additional Instructions: Please follow up with pulmonology, primary care, infectious disease as scheduled. Please return to the emergency department as needed for any other problems or concerns, or if your symptoms return or worsen. Resume your normal medications. Your new medications have been called to your pharmacy. Return to your normal diet and activities as tolerated. Referrals: Fredis Urias MD [Partnered Physician] - (hosital follow up appointment web requested. office will call with date and time of appointment. if they do not call you, call them. ) Zander Christina DO [Primary Care Provider] - 04/08/18 2:00 pm Candice Candelaria MD [Partnered Physician] - (hosital follow up appointment web requested. office will call with date and time of appointment. if they do not call you, call them. ) Prescriptions: Acyclovir [Zovirax] 800 mg PO TID #21 tablet Levofloxacin [Levaquin] 750 mg PO DAILY #7 tablet
--- NOTE | 2018-04-07 12:00 | Event Note ---
Date of Encounter: 04/07/18 Time of Encounter: 11:59 Cultures remain negative from bronch,. HSV pending. From Pulmonary perspective ok for D/C with Oral Levaquin and Acyclovir with f/u in clinic within next days. Call with questions
[2018-04-08 13:20] LABS: Influenza A PCR Body Fluid NOT DETECTED; Influenza B PCR Body Fluid NOT DETECTED; RVP Body Fluid Source BAL RUL
[2018-04-08 16:17] LABS: HSV Source BAL
[2018-04-09 07:34] LABS: RSV PCR Body Fluid NOT DETECTED
== END 2018-04-07 11:59 | disposition home or self-care (01) | DRG 853 ==
LOC: EMEROO 15:44 → 3BNU 15:44
PROVIDERS: ADMIT Family Medicine; ATTEND Family Medicine
PROC: ENDOBRF (2018-04-05 13:50)